=== PATIENT | female | born 1975 | race Caucasian/White ===

== ENCOUNTER → 2021-09-03 13:43 | Outpatient (BNVA) | payer BC, SELFPAY | PROVIDERS: Family Provider Family Medicine; PCP Nurse Practitioner Family; Visit Provider Nurse Practitioner Family | DX: G56.01 Carpal tunnel syndrome, right upper limb (principal); M25.531 Pain in right wrist; M19.031 Primary osteoarthritis, right wrist | CPT/HCPCS: 73110 ==

== ENCOUNTER → 2022-12-22 10:19 | Outpatient (BNVA) | payer BC, SELFPAY | PROVIDERS: Family Provider Family Medicine; PCP Nurse Practitioner Family; Visit Provider Nurse Practitioner Family | DX: R05.9 Cough, unspecified (principal); J32.9 Chronic sinusitis, unspecified; B96.89 Other specified bacterial agents as the cause of diseases classified elsewhere; H65.91 Unspecified nonsuppurative otitis media, right ear | CPT/HCPCS: 87400; 87426 ==

== ENCOUNTER → 2023-01-05 16:10 | Outpatient (BNVA) | payer BC, MEDICAID, SELFPAY | PROVIDERS: Family Provider Family Medicine; PCP Nurse Practitioner Family; Visit Provider Nurse Practitioner Family | DX: R05.9 Cough, unspecified (principal); R06.02 Shortness of breath; R50.9 Fever, unspecified | CPT/HCPCS: 71046; 80053; 83036; 85025 ==

== ENCOUNTER → 2023-01-28 11:29 | Outpatient (BNVA) | payer BC, MEDICAID, SELFPAY | PROVIDERS: Family Provider Family Medicine; PCP Nurse Practitioner Family; Visit Provider Nurse Practitioner | DX: R05.3 Chronic cough (principal) | CPT/HCPCS: 71046 ==

== ENCOUNTER 2023-05-21 09:55 | Outpatient (CLI) | payer MEDICAID, SELFPAY ==
--- NOTE | 2023-05-21 09:58 | NM_ITS ---
WS: [id number] NUCLEAR MEDICINE HIDA SCAN WITH GALLBLADDER EJECTION FRACTION HISTORY: RIGHT UPPER QUADRANT PAIN COMPARISON: 07/23/2007 and gallbladder ultrasound 04/10/2014 TECHNIQUE: The patient was intravenously injected with 8.0 mCi of TC99m Mebrofenin. Immediate imaging over the right upper quadrant was followed by 5 minute image and additional images for a total of 60 minutes. Normal uptake of radiotracer throughout the liver. Activity identified in the gallbladder at 10 minutes and well distended by 60 minutes. Activity in the proximal small bowel was seen by 30 minutes. Good washout of the radiotracer from the liver by 60 minutes. The patient then drank 8 ounces of Ensure Plus. Ejection fraction at 60 minutes was 78%. Normal GB ej ection fraction is 35-75%. Post fatty meal symptoms: None. NM/NM hepatobiliary w phar* [id number] IMPRESSION: 1. Normal HIDA scan. 2. Normal gallbladder ejection fraction.
== END 2023-05-21 09:56 | disposition home or self-care (01) ==
LOC: RAD 09:56
PROVIDERS: PCP Nurse Practitioner; Visit Provider Nurse Practitioner
DX: R10.11 Right upper quadrant pain (principal)
CPT/HCPCS: 78227; A9537

== ENCOUNTER → 2024-09-19 13:27 | Outpatient (BNVA) | payer OTHER, SELFPAY | PROVIDERS: PCP Nurse Practitioner; Visit Provider Nurse Practitioner Family | DX: S69.92XA Unspecified injury of left wrist, hand and finger(s), initial encounter (principal); M79.642 Pain in left hand; M25.742 Osteophyte, left hand; Y29.XXXA Contact with blunt object, undetermined intent, initial encounter | CPT/HCPCS: 73130 ==

== ENCOUNTER 2025-04-03 16:10 | Outpatient (CLI) | payer MEDICAID, SELFPAY ==
--- NOTE | 2025-04-03 16:15 | USCV_ITS ---
Dominique Naylor Age: 49 Gender: F : 1975 Exam Date: 04/03/2025 16:25 Ordering Phys: Zoe Fernandez Technologist: R Exam Location: [facility] [place] Indication: swelling HISTORY: Swelling. TDS due to habitus PROCEDURES: On the left side, the common femoral, superficial femoral, profunda femoral, popliteal, posterior tibial, greater saphenous veins, and the peroneal trunk were identified and interrogated in the standard fashion. These veins were found to be easily compressible with spontaneous blood flow. No evidence of insufficiency or thrombus noted. Serial compression, augmentation maneuvers, and spectral Doppler flow evaluation were performed. FINDINGS: Normal 2-D Doppler and augmentation and compressibility throughout the lower extremity venous structures. Additional imaging through the proximal calf veins also reveals no thrombus. Limited evaluation of the greater saphenous vein is patent with no thrombus. CONCLUSIONS No DVT left lower extremity. Dr. Ava Wilson DO (Electronically Signed) Final Date: 04 Apr 2025 07:43 S
== END 2025-04-03 16:11 | disposition home or self-care (01) ==
PROVIDERS: PCP Nurse Practitioner; Visit Provider Nurse Practitioner
DX: M79.89 Other specified soft tissue disorders (principal)
CPT/HCPCS: 93971

== ENCOUNTER → 2025-04-28 13:19 | Outpatient (BNVA) | payer MEDICAID, SELFPAY | PROVIDERS: PCP Nurse Practitioner; Visit Provider Nurse Practitioner | DX: M17.12 Unilateral primary osteoarthritis, left knee (principal); M54.50 Low back pain, unspecified; M79.604 Pain in right leg | CPT/HCPCS: 73560; 73565 ==

== ENCOUNTER → 2025-05-09 14:37 | Outpatient (BNVA) | payer MEDICAID, SELFPAY | PROVIDERS: PCP Nurse Practitioner; Visit Provider Orthopaedic Surgery | DX: M54.9 Dorsalgia, unspecified (principal); M54.50 Low back pain, unspecified; M79.604 Pain in right leg; M79.605 Pain in left leg | CPT/HCPCS: 72110 ==

== ENCOUNTER → 2025-05-15 14:59 | Outpatient (BNVA) | payer MEDICAID, SELFPAY | PROVIDERS: PCP Nurse Practitioner; Visit Provider Nurse Practitioner | DX: M70.61 Trochanteric bursitis, right hip (principal); M70.62 Trochanteric bursitis, left hip; M54.50 Low back pain, unspecified; M79.604 Pain in right leg; M79.605 Pain in left leg | CPT/HCPCS: 73523 ==

== ENCOUNTER 2025-05-23 05:00 | Outpatient (RCR) | payer MEDICAID, SELFPAY | END 2025-06-22 23:59 | disposition home or self-care (01) | LOC: GPT 05:00 | PROVIDERS: PCP Nurse Practitioner; Visit Provider Orthopaedic Surgery | DX: M54.50 Low back pain, unspecified (principal); G89.29 Other chronic pain | CPT/HCPCS: 97110; 97112; 97140; 97161 ==

== ENCOUNTER 2025-05-28 16:22 | Emergency (ER) | payer MEDICAID, SELFPAY ==
--- OUTSIDE RECORDS SUMMARY | 2025-05-24 05:50 | XMS_ITS ---
Author Organization [employer] Address [address] [address] Care Team Providers Care Compliance Specialist Name Role Phone Zoe Fernandez Unavailable [phone] Allergies Allergen (clinical drug ingredient) Drug/Non Drug Allergy documented on EMR Reaction Allergy Type Onset Date Status sulfamethoxazole / trimethoprim Bactrim severe rash Drug Allergy Active Latex Latex rash Allergy Active lisinopril Lisinopril cough Drug Allergy Activ e Substance with sulfonamide structure and antibacterial mechanism of action (substance) Sulfa Antibiotics rash Drug Allergy Active Grandy Passion Fruit OS angioedema Drug Allergy Active REASON FOR VISIT f/u DM labs Medications Medication SIG (Take, Route, Frequency, Duration) Notes Start Date End Date Status predniSONE 20 MG TAKE THREE TABLETS BY MOUTH ONCE DAILY FOR FOUR DAYS THEN TAKE 1 & 1/2 TABLETS ONCE DAILY FOR FOUR DAYS THEN TAKE ONE TABLET ONCE DAILY FOR FOUR DAYS THEN TAKE 1/2 TABLET ONCE DAILY FOR FOUR DAYS Oral; Duration: 16 Days 06/14/2024 Unknown Ozempic (0.25 or 0.5 MG/DOSE) 2 MG/3ML 0.5mg Subcutaneous weekly; Duration: 30 days 2025 Active Ozempic (0.25 or 0.5 MG/DOSE) 2 MG/3ML 1mg Subcutaneous weekly; Duration: 30 days 06/23/2025 Active Varenicline Tartrate (Starter) 0.5 MG X 11 & 1 MG X 42 as directed Orally daily; Duration: 28 days 2025 Active Varenicline Tartrate (Starter) 0.5 MG X 11 & 1 MG X 42 as directed Orally month 2 and thereafter 06/23/2025 Active Albuterol Unknown Advair Diskus 250-50 MCG/ACT 1 puff Inhalation Twice a day; Duration: 30 days Active Trelegy Ellipta 100-62.5-25 MCG/ACT 1 puff Inhalation Once a day 08/29/2024 Unknown Nystatin 115649 UNIT/GM APPLY ONE APPLICATION TWICE DAILY; Duration: 15 Active Famotidine 20 mg TAKE ONE TO TWO TABLETS BY MOUTH ONCE DAILY FOR 30 DAYS; Duration: 30 Active Omeprazole 20 mg TAKE ONE CAPSULE BY MOUTH ONCE DAILY 30 MINUTES BEFORE MORNING MEAL; Duration: 90 Active Escitalopram Oxalate 10 mg TAKE ONE TABLET BY MOUTH ONCE DAILY; Duration: 90 Active Losartan Potassium 25 mg TAKE ONE TABLET BY MOUTH ONCE DAILY; Duration: 90 Active hydroCHLOROthiazide 12.5 MG 1 capsule in the morning Oral Once a day; Duration: 90 days Active Nystatin 958748 UNIT/GM APPLY ONE APPLICATION TO DIAPER/SKIN RASH EXTERNALLY TWICE DAILY FOR 10 DAYS; Duration: 10 Active Pimecrolimus 1 % APPLY ONE APPLICATION EXTERNALLY TWICE DAILY FOR 7 DAYS; Duration: 7 Active Diclofenac Sodium 75 MG 1 tablet as need ed prn pain Orally Twice a day 04/05/2025 Active Ondansetron HCl 4 MG 1 tablet as needed for nausea/vomiting Orally three times daily 01/06/2025 Active Clobetasol Propionate 0.05 % apply TO THE AFFECTED AREA(S) topically TO LEGS ONCE DAILY AT night. add occlusive dressing (saran WRAP) FOR 15 DAYS; Duration: 15 Active Ventolin HFA 108 (90 Base) MCG/ACT INHALE 2 PUFFS BY MOUTH EVERY 4 HOURS; Duration: 2 Active Meloxicam 7.5 MG 1 tablet Orally Once a day Active hydrOXYzine HCl 25 mg TAKE 1/2 TO 1 TABLET BY MOUTH EVERY 6 HOURS NEEDED FOR ITCHING/PANIC/ANXI ETY FOR 10 DAYS; Duration: 10 Active EPINEPHrine 0.3 MG/0.3ML as directed for r anahylaxis. Injection call EMS after injection. must go to ER. 07/24/2023 Active Triamcinolone Acetonide 0.1 % APPLY TO THE AFFECTED AREA(S) ON TRUNK AND EXTREMITIES TWICE DAILY External; Duration: 30 Days 06/10/2024 Active Social History Sex Assigned At : Social History Observation Description Sex Assigned At Female Problems Problem Type SNOMED Code ICD Code Onset Dates Problem Status W/U Status Risk Notes Problem Hyperglycemia due to type 2 diabetes mellitus (227140825722676) Type 2 diabetes mellitus with hyperglycemia , without long-term current use of insulin (E11.65) Active confirmed Problem Body mass index 40+ - severely obese (887318484) Body mass index (BMI) of 40.1 to 44.9 in adult (Z68.41) Active confirmed Vital Signs Blood pressure systolic 120 mm Hg 05/24/20 25 Blood pressure diastolic 55 mm Hg 025 Heart Rate 81 /min 2025 Temperature 97.8 degrees Fahrenheit 05/24/20 25 Oximetry 97 % 2025 Weight 243.2 lbs 2025 Weight-kg 110.31 kg 2025 Height 64.5 in 2025 Height-cm 163.83 cm 2025 BMI 41.1 kg/m2 2025 Encounters En[facility] [address] [address] 2025 Zoe Fernandez Type 2 diabetes mellitus with hyperglycemia, without long-term current use of insulin E11.65 ; Body mass index (BMI) of 40.1 to 44.9 in adult Z68.41 and Smoker F17.200 Assessments Encounter Date Diagnosis (ICD Code) Assessment Notes Treatment Notes Treatment Clinical Notes Section Notes 2025 Type 2 diabetes mellitus with hyperglycemia, without long-term current use of insulin (ICD-10 - E11.65) 2025 Body mass index (BMI) of 40.1 to 44.9 in adult (ICD-10 - Z68.41) 2025 Smoker (ICD-10 - F17.200) Plan Of Treatment Medication Medication Name Sig Start Date Stop Date Notes Ozempic (0.25 or 0.5 MG/DOSE) 2 MG/3ML 0.5mg Subcutaneous weekly; Duration: 30 days 2025 06/23/2025 month 1 Ozempic (0.25 or 0.5 MG/DOSE) 2 MG/3ML 1mg Subcutaneous weekly; Duration: 30 days 06/23/2025 07/23/2025 Varenicline Tartrate (Starter) 0.5 MG X 11 & 1 MG X 42 as directed Orally daily; Duration: 28 days 2025 06/21/2025 Varenicline Tartrate (Starter) 0.5 MG X 11 & 1 MG X 42 as directed Orally 06/23/2025 month 2 and thereafter Future Test Test Name Order Date COMPREHENSIVE METABOLIC PANEL (74505) HEMOGLOBIN A1c (496) 08/23/2025 Next Appt Details Follow Up: 3 Months, Reason: Provider Name:Zoe Fernandez , 08/24/2025 08:10:00 AM, [address] [place] [address], [phone], Provider Name:Zoe Montanez , 08/31/2025 09:20:00 AM, [address] [place] [address], [phone], Progress Notes * Dominique NAYLOR EDOB: 6 (50 yo F)Acc No.[id number] Patient: Darren Dominique SANTANA Provider: Jenna Fernandez :1975 A ge:50 Y S ex:Female Date:2025 Address:[address] [place], [place] [id number] Subjective: * Chief Complaints: * f /u DM labs * HPI: T ransition of Care: variable glucose fasting 132 yesterday am. 2hr PP not recently checked got steroid inj in bilat hips and left knee yesterday, kar Salomon. started PT 05/23 will continue 2x week for 6w for hip/knee/back pain had 140 fasting glucose a few times since last visit --- stopped chantix d/t nausea...but thinks it may be d/t her food and env allergies. * ROS: G eneral / Constitutional: Patient denies f ever. E ndocrine: Patient complains of e xcessive sweating... horrible cold sweats . R espiratory: Patient complains of c hronic cough. H ematology: Patient denies s wollen glands. M usculoskeletal: Patient complains of s ee HPI, see HPI. * Medical History: * Medications: T akingMeloxicam 7.5 MG Tablet 1 tablet Orally Once a day EPINEPHrine 0.3 MG/0.3ML Solution Prefilled Syringe as directed forr anahylaxis. Injection , Notes to Pharmacist: call EMS after injection. must go to ER.Triamcinolone Acetonide 0.1 % Ointment APPLY TO THE AFFECTED AREA(S) ON TRUNK AND EXTREMITIES TWICE DAILY External hydrOXYzine HCl 25 mg Tablet TAKE 1/2 TO 1 TABLET BY MOUTH EVERY 6 HOURS NEEDED FOR ITCHING/PANIC/ANXIETY FOR 10 DAYS Ventolin HFA 108 (90 Base) MCG/ACT Aerosol Solution INHALE 2 PUFFS BY MOUTH EVERY 4 HOURS Ondansetron HCl 4 MG Tablet 1 tablet as needed for nausea/vomiting Orally three times daily Clobetasol Propionate 0.05 % Ointment apply TO THE AFFECTED AREA(S) topically TO LEGS ONCE DAILY AT night. add occlusive dressing (saran WRAP) FOR 15 DAYS Pimecrolimus 1 % Cream APPLY ONE APPLICATION EXTERNALLY TWICE DAILY FOR 7 DAYS Diclofenac Sodium 75 MG Tablet Delayed Release 1 tablet as needed prn pain Orally Twice a day Omeprazole 20 mg Capsule Delayed Release TAKE ONE CAPSULE BY MOUTH ONCE DAILY 30 MINUTES BEFORE MORNING MEAL Escitalopram Oxalate 10 mg Tablet TAKE ONE TABLET BY MOUTH ONCE DAILY Losartan Potassium 25 mg Tablet TAKE ONE TABLET BY MOUTH ONCE DAILY hydroCHLOROthiazide 12.5 MG Capsule 1 capsule in the morning Oral Once a day Nystatin 451110 UNIT/GM Powder APPLY ONE APPLICATION TO DIAPER/SKIN RASH EXTERNALLY TWICE DAILY FOR 10 DAYS Nystatin 190868 UNIT/GM Cream APPLY ONE APPLICATION TWICE DAILY Famotidine 20 mg Tablet TAKE ONE TO TWO TABLETS BY MOUTH ONCE DAILY FOR 30 DAYS Advair Diskus 250-50 MCG/ACT Aerosol Powder Breath Activated 1 puff Inhalation Twice a day Taking Meloxicam 7.5 MG Tablet 1 tablet Orally Once a day Taking EPINEPHrine 0.3 MG/0.3ML Solution Prefilled Syringe as directed forr anahylaxis. Injection , Notes to Pharmacist: call EMS after injection. must go to ER.Taking Triamcinolone Acetonide 0.1 % Ointment APPLY TO THE AFFECTED AREA(S) ON TRUNK AND EXTREMITIES TWICE DAILY External Taking hydrOXYzine HCl 25 mg Tablet TAKE 1/2 TO 1 TABLET BY MOUTH EVERY 6 HOURS NEEDED FOR ITCHING/PANIC/ANXIETY FOR 10 DAYS Taking Ventolin HFA 108 (90 Base) MCG/ACT Aerosol Solution INHALE 2 PUFFS BY MOUTH EVERY 4 HOURS Taking Ondansetron HCl 4 MG Tablet 1 tablet as needed for nausea/vomiting Orally three times daily Taking Clobetasol Propionate 0.05 % Ointment apply TO THE AFFECTED AREA(S) topically TO LEGS ONCE DAILY AT night. add occlusive dressing (saran WRAP) FOR 15 DAYS Taking Pimecrolimus 1 % Cream APPLY ONE APPLICATION EXTERNALLY TWICE DAILY FOR 7 DAYS Taking Diclofenac Sodium 75 MG Tablet Delayed Release 1 tablet as needed prn pain Orally Twice a day Taking Omeprazole 20 mg Capsule Delayed Release TAKE ONE CAPSULE BY MOUTH ONCE DAILY 30 MINUTES BEFORE MORNING MEAL Taking Escitalopram Oxalate 10 mg Tablet TAKE ONE TABLET BY MOUTH ONCE DAILY Taking Losartan Potassium 25 mg Tablet TAKE ONE TABLET BY MOUTH ONCE DAILY Taking hydroCHLOROthiazide 12.5 MG Capsule 1 capsule in the morning Oral Once a day Taking Nystatin 435152 UNIT/GM Powder APPLY ONE APPLICATION TO DIAPER/SKIN RASH EXTERNALLY TWICE DAILY FOR 10 DAYS Taking Nystatin 406986 UNIT/GM Cream APPLY ONE APPLICATION TWICE DAILY Taking Famotidine 20 mg Tablet TAKE ONE TO TWO TABLETS BY MOUTH ONCE DAILY FOR 30 DAYS Taking Advair Diskus 250-50 MCG/ACT Aerosol Powder Breath Activated 1 puff Inhalation Twice a day UnknownTrelegy Ellipta 100-62.5-25 MCG/ACT Aerosol Powder Breath Activated 1 puff Inhalation Once a day Albuterol predniSONE 20 MG Tablet TAKE THREE TABLETS BY MOUTH ONCE DAILY FOR FOUR DAYS THEN TAKE 1 & 1/2 TABLETS ONCE DAILY FOR FOUR DAYS THEN TAKE ONE TABLET ONCE DAILY FOR FOUR DAYS THEN TAKE 1/2 TABLET ONCE DAILY FOR FOUR DAYS Oral Medication List reviewed and reconciled with the patientUnkpatrica Trelegy Ellipta 100-62.5-25 MCG/ACT Aerosol Powder Breath Activated 1 puff Inhalation Once a day Unknown Albuterol Unknown predniSONE 20 MG Tablet TAKE THREE TABLETS BY MOUTH ONCE DAILY FOR FOUR DAYS THEN TAKE 1 & 1/2 TABLETS ONCE DAILY FOR FOUR DAYS THEN TAKE ONE TABLET ONCE DAILY FOR FOUR DAYS THEN TAKE 1/2 TABLET ONCE DAILY FOR FOUR DAYS Oral Medication List reviewed and reconciled with the patient * Allergies: B actrim: severe rashMango Passion Fruit OS: angioedemaSulfa Antibiotics: rash - Allergy - Criticality HighLisinopril: coughLatex: rash - Criticality [place][Allergies Verified] Objective: * Vitals: B P:120/55mm Hg, HR:81/min, Temp:97.8F, Oxygen sat %:97%, Wt:243.2lbs, Wt-k.31 kg, Ht: 64.5 in, Ht-cm: 163.83 cm, BMI:41.1Index, Body Surface Area: 2.24. * Examination: G eneral Examination: General appearance: a lert, pleasant, well-nourished and in no acute distress . Head: n ormocephalic, atraumatic . Eyes: n ormal . Nose: n ryan patent . Oral cavity: n ormal . Neck / thyroid: t rachea midline . Lymph nodes: n o cervical lymphadenopathy . Heart: r egular rate and rhythm without murmurs, gallops, clicks or rubs . Lungs: c lear to auscultation bilaterally, with good air movement and no rales, rhonchi or wheezes . Peripheral pulses: n ormal 2+ arterial pulses . Neurologic: a lert and oriented . Psych: n ormal affect / mood . Assessment: * Assessment: 1. T ype 2 diabetes mellitus with hyperglycemia, without long-term current use of insulin - E11.65 (Primary) 2 . B concepción mass index (BMI) of 40.1 to 44.9 in adult - Z68.41 ? 3 . S ysabel - F17.200 Plan: * Treatment: 2. S moker Start Varenicline Tartrate (Starter) Tablet Therapy Pack, 0.5 MG X 11 & 1 MG X 42, as directed, Orally, daily, 28 days, 1 pack, Refills 0; S tart Varenicline Tartrate (Starter) Tablet Therapy Pack, 0.5 MG X 11 & 1 MG X 42, as directed, Orally, 1 pack, Refills 5, Notes to Pharmacist: month 2 and thereafter. * Procedure Codes: * Follow Up: 3 Months * Billing Information: * Visit Code: 44931 Office Visit, Est Pt., Level 4. * Procedure Codes: * Sign off status: Completed true * Provider: Jenna Fernandez Date: 2025 Generated for Justin potts/Deven/Doc on: 05/28/2025 04:28 PM CDT History and Physical Notes * HPI (History of Present Illness) Category Sub-Category Detail Notes Category Not es Transition of Care started PT 05/23 will continue 2x week for 6w for hip/knee/back pain had 140 fasting glucose a few times since last visit --- stopped chantix d/t nausea...but thinks it may be d/t her food and env allergies Examination Category Sub-Category Detail Notes Category Not es General Examination General appearance: alert, p leasant, well-nourished and in no acute distress Head: normocephalic, atrau matic Eyes: normal Nose: nares patent Neck / thyroid: trachea midline Heart: regular rate and rhy thm without murmurs, gallops, clicks or rubs Lungs: clear to auscultatio n bilaterally, with good air movement and no rales, rhonchi or wheezes Neurologic: alert and oriented Peripheral pulses: normal 2+ arterial p ulses Lymph nodes: no cervical lymphade nopathy Psych: normal affect / mood Oral cavity: normal
[2025-05-28 16:23] VITALS: BP 134/91; PULSE 87; RESP 17; TEMP 36.9; O2SAT 95; BMI 43.2
--- NOTE | 2025-05-28 16:24 | XRR_ITS ---
PROCEDURE INFORMATION: Exam: XR Chest Exam date and time: 05/28/2025 4:32 PM Age: 50 years old Clinical indication: Chest pressure; Chest pain that worsens with expiration. PT has a history of pe. ; Additional info: Cp TECHNIQUE: Imaging protocol: Radiologic exam of the chest. Views: 1 view. COMPARISON: CR XR chest 2V* [id number] 01/28/2023 11:49 AM FINDINGS: Lungs: Unremarkable. No consolidation. Pleural spaces: Unremarkable. No pleural effusion. No pneumothorax. Heart/Mediastinum: Unremarkable. No cardiomegaly. Bones/joints: Mild spondylosis and bilateral acromioclavicular joint arthropathy. XR/XR chest 1V portable [id number] IMPRESSION: No acute findings.
--- NOTE | 2025-05-28 16:24 | ECG_ITS ---
[facility] Test Date: 2025-05-28 Pat Name: Dominique Naylor Department: Room: Gender: Female Bi Analyst: : 1975 Requested By: Sanjeev Hoskins Order Number: [id number] Reading MD: Measurements Intervals Brilliant Rate: 85 P: 38 NH: 159 QRS: 10 QRSD: 94 T: 40 QT: 365 QTc: 434 Interpretive Statements SINUS RHYTHM LOW QRS VOLTAGE IN PRECORDIAL LEADS [QRS DEFLECTION < 1.0 mV IN CHEST LEADS] Compared to ECG 04/10/2017 16:43:39 Low QRS voltage now present [email or web address]
--- NOTE | 2025-05-28 16:27 | CTR_ITS ---
PROCEDURE INFORMATION: Exam: CTA Chest With Contrast Exam date and time: 05/28/2025 5:03 PM Age: 50 years old Clinical indication: Pain; Chest pressure; Additional info: Cp TECHNIQUE: Imaging protocol: Computed tomographic angiography of the chest with contrast. Exam focused on the arteries. 3D rendering (Not supervised by radiologist): MIP and/or 3D reconstructed images were created by the technologist. Radiation optimization: All CT scans at this facility use at least one of these dose optimization techniques: automated exposure control; mA and/or kV adjustment per patient size (includes targeted exams where dose is matched to clinical indication); or iterative reconstruction. Contrast material: OMNIPAQUE 350; Contrast volume: 73 ml; Contrast route: INTRAVENOUS (IV); COMPARISON: CR (CHEST, ) 05/28/2025 4:32 PM RADIATION DOSE METRICS: Total DLP (mGy-cm): 506.26 FINDINGS: Pulmonary arteries: Normal. No pulmonary emboli. Aorta: Unremarkable. No aortic aneurysm. No aortic dissection. Lungs: No consolidation or mass. 7 mm posterior left upper lobe nodule on axial image 154 of series 7. Possible fat density. Pleural spaces: Unremarkable. No pneumothorax. No pleural effusion. Heart: Unremarkable. No cardiomegaly. No pericardial effusion. Lymph nodes: Unremarkable. No enlarged lymph nodes. Bones/joints: No acute fracture. Mild spondylosis. Soft tissues: Unremarkable. CT/CT angio chest PE protcl [id number] IMPRESSION: 7 mm left upper lobe nodule with possible fat density possibly indicating hamartoma. For patients at low risk (minimal or absent history of smoking and of other known risk factors), recommend CT Chest at 6-12 months, then consider CT Chest at 18-24 months. For patients at high risk (history of smoking or of other known risk factors), recommend CT Chest at 6-12 months, then CT Chest at 18-24 months. (Reference: Alec) REFERENCES: Alec Gupta et al. Guidelines for Management of Incidental Pulmonary Nodules Detected on CT Images: From the Fleischner Society 2017. Radiology. 2017;284(1):228-243.
--- NOTE | 2025-05-28 16:28 | W.ED.CHESTPA ---
Documented by User: Sanjeev Hoskins MD 05/28/25 16:31 HPI - Chest Pain General: Chief Complaint: Chest Pain Stated Complaint: chest pain Time Seen by Provider: 05/28/25 16:24 Source: patient and EMS Mode of arrival: EMS Limitations: no limitations History of Present Illness: 50-year-old female states been having sharp left-sided chest pain throughout the day. States has been much worse with [facility] her pain was originally 10 out of 10 states its much improved currently 1 out of 10 she had a slight cough she states she does have a history of PE 8 years ago is not currently on any blood thinners Associated symptoms: Deny abdominal pain, fever(s), nausea or vomiting Related Data Home Medications ?Medication ?Instructions ?Recorded ?Confirmed [id number] 18 mg-FA 400 tab PO 06/26/22 05/15/25 mcg-calcium 500 mg-vit K 50 mcg tablet (Women's Multivitamin) losartan 25 mg tablet 25 mg PO DAILY 04/28/25 05/15/25 escitalopram oxalate 20 mg tablet 20 mg PO DAILY 05/09/25 05/15/25 (Lexapro) hydrochlorothiazide 25 mg tablet 25 mg PO DAILY 05/09/25 05/15/25 omeprazole magnesium 20 mg 20 mg PO DAILY 05/09/25 05/15/25 tablet,delayed release (Prilosec OTC) Previous Rx's ?Medication ?Instructions ?Recorded losartan 25 mg tablet See Rx Instructions .Route 10/23/22 .COMPLEX #90 tabs meloxicam 7.5 mg tablet 7.5 mg PO DAILY #90 tabs 04/28/25 Allergies Allergy/AdvReac Type Severity Reaction Status Date / Time Sulfa (Sulfonamide Allergy ALGY-Hives Verified 05/15/25 14:57 Antibiotics) Review of Systems Const: Denies: fever(s), chills, body aches or change in appetite ENMT: Denies: throat pain or dental pain Card: Reports: chest pain Resp: Reports: non-productive cough GI: Denies: abdominal pain, nausea, vomiting or diarrhea : Denies: dysuria Musc: Denies: neck pain or back pain Skin/Breast: Denies: rash Neuro: Denies: headache(s) PFSH ED PFSH: Medical History Greater trochanteric bursitis of both hips Low back pain radiating to both legs Primary osteoarthritis of left knee Social History Smoking and tobacco/nicotine status: current every day tobacco/nicotine user cigarettes Packs smoked per day: 0.5 Alcohol intake: never Substance/Drug Use: never Physical Exam Const: COMMON NORMALS: no acute distress, patient oriented x3 and healthy appearing HENMT: COMMON NORMALS: normocephalic and atraumatic HEAD & SCALP: normocephalic and atraumatic Eye: COMMON NORMALS: conjunctivae normal CONJUNCTIVA: Yes conjunctivae normal Neck/C-Spine: COMMON NORMALS: full ROM and supple Chest: COMMONS NORMALS: normal inspection of the chest and normal palpation of entire chest wall Resp: COMMON NORMALS: normal respiratory effort, No retractions, No use of accessory muscles and clear to auscultation bilaterally AUSCULTATION: clear to auscultation bilaterally Cardio: COMMON NORMALS: regular rate, regular rhythm and No murmurs present (Cardio) RATE: regular rate RHYTHM: regular rhythm Extremity: COMMON NORMALS: normal to inspection and full ROM Neuro: COMMON NORMALS: patient oriented x3, moves all extremities and no focal motor deficits Psych: COMMON NORMALS: mental status grossly normal, Normal thought process present and cooperative THOUGHT PROCESS: Normal thought process present Skin: COMMON NORMALS: no rashes or lesions noted and no wounds GENERAL SKIN EXAM: no rashes or lesions noted Course Vital Signs: Vital signs: Vital Signs Temperature 98.5 F 05/28/25 16:23 Pulse Rate 83 05/28/25 17:40 Respiratory Rate 17 05/28/25 17:40 Blood Pressure 139/73 05/28/25 17:40 Pulse Oximetry 94 05/28/25 17:40 Oxygen Delivery Me thod Room Air 05/28/25 17:40 MDM - Chest Pain Medical Records I reviewed the patient's medical records. Lab Data I reviewed the patient's lab results. 05/28/25 16:47 05/28/25 16:47 Radiology Impressions Chest X-Ray 05/28/25 16:24 IMPRESSION: No acute findings. Chest CTA 05/28/25 16:27 IMPRESSION: 7 mm left upper lobe nodule with possible fat density possibly indicating hamartoma. For patients at low risk (minimal or absent history of smoking and of other known risk factors), recommend CT Chest at 6-12 months, then consider CT Chest at 18-24 months. For patients at high risk (history of smoking or of other known risk factors), recommend CT Chest at 6-12 months, then CT Chest at 18-24 months. (Reference: Alec) REFERENCES: Alec Gupta et al. Guidelines for Management of Incidental Pulmonary Nodules Detected on CT Images: From the Fleischner Society 2017. Radiology. 2017;284(1):228-243. Laboratory Results WBC 17.13 10^3/uL (3.29-11.43) H 05/28/25 16:47 RBC 4.54 10^6/uL (3.85-5.65) 05/28/25 16:47 Hgb 13.80 g/dL (11.27-16.99) 05/28/25 16:47 Hct 42.0 % (36-47) 05/28/25 16:47 MCV 92.5 fl (85-98) 05/28/25 16:47 MCH 30.4 pg (27-33) 05/28/25 16:47 MCHC 32.9 g/dL (30-55) 05/28/25 16:47 RDW 13.8 % (12.1-15.1) 05/28/25 16:47 Plt Count 298 10^3/cmm (157-399) 05/28/25 16:47 MPV 9.5 fL (7.4-10.4) 05/28/25 16:47 Neut % (Auto) 68.7 % 05/28/25 16:47 Lymph % (Auto) 23.8 % 05/28/25 16:47 Jennings % (Auto) 5.4 % 05/28/25 16:47 Eos % (Auto) 1.3 % 05/28/25 16:47 Baso % (Auto) 0.4 % 05/28/25 16:47 Neut # (Auto) 11.76 10^3/uL (1.8-7.7) H 05/28/25 16:47 Lymph # (Auto) 4.1 10^3/uL (0.8-4.8) 05/28/25 16:47 Jennings # (Auto) 0.9 10^3/uL (0.2-0.9) 05/28/25 16:47 Eos # (Auto) 0.2 10^3/uL (0.0-0.8) 05/28/25 16:47 Baso # (Auto) 0.1 10^3/uL (0.0-0.1) 05/28/25 16:47 Nucleated RBC % (auto) 0 % 05/28/25 16:47 Nucleated RBCs # 0.0 /100WBC 05/28/25 16:47 PT 12.90 SECONDS (12.1-14.9) 05/28/25 16:47 INR 0.91 (0.8-1.2) 05/28/25 16:47 Sodium 138 mmol/L (136-145) 05/28/25 16:47 Potassium 4.3 mmol/L (3.5-5.1) 05/28/25 16:47 Chloride 100 mmol/L (98-107) 05/28/25 16:47 Carbon Dioxide 26 mmol/L (22-29) 05/28/25 16:47 Anion Gap 16.3 (5-19) 05/28/25 16:47 BUN 14 mg/dL (6-20) 05/28/25 16:47 Creatinine 0.7 mg/dL (0.5-0.9) 05/28/25 16:47 GFR Calculation 88.9 mL/min (90-130) L 05/28/25 16:47 Glucose 118 mg/dL (65-115) H 05/28/25 16:47 Calculated Osmolality 288 mOsm/kg (285-295) 05/28/25 16:47 Calcium 8.7 mg/dL (8.5-10.5) 05/28/25 16:47 Total Bilirubin 0.2 mg/dL (0.15-1.2) 05/28/25 16:47 AST 13 U/L (0-32) 05/28/25 16:47 ALT 19 U/L (0-33) 05/28/25 16:47 Alkaline Phosphatase 95 U/L (35-105) 05/28/25 16:47 Troponin T Baseline < 6 ng/L (0-10) 05/28/25 16:47 Troponin T 120 Minute < 6.0 ng/L (0-10) 05/28/25 19:02 Delta Troponin T 0 ABS# (0-10) 05/28/25 19:02 Total Protein 6.6 g/dL (6.6-8.7) 05/28/25 16:47 Albumin 3.6 g/dL (3.5-5.2) 05/28/25 16:47 Globulin 3.0 g/dL (1.3-4.6) 05/28/25 16:47 Lipase 22 U/L (13-60) 05/28/25 16:47 All radiology interpretation(s) finalized by discharge EKG Data EKG 1: I personally reviewed and interpreted this EKG as follows: EKG interpretation date: 05/28/25 EKG interpretation time: 16:26 Interpretation: nsr hr [address] elevation qrs 94 qtc 407 Discharge Plan Discharge Patient Disposition: Home Clinical Impression: Pleuritic chest pain Condition: Stable Prescriptions: No Action losartan 25 mg tablet 25 mg PO DAILY meloxicam 7.5 mg tablet 7.5 mg PO DAILY Qty: 90 0RF hydrochlorothiazide 25 mg tablet 25 mg PO DAILY escitalopram oxalate [Lexapro] 20 mg tablet 20 mg PO DAILY omeprazole magnesium [Prilosec OTC] 20 mg tablet,delayed release (DR/EC) 20 mg PO DAILY Women's Multivitamin 18 mg-400 mcg- 500 mg-50 mcg tablet PO losartan 25 mg tablet See Rx Instructions .ROUTE .COMPLEX Qty: 90 0RF Dose Instruction: Take 1 tablet by mouth once daily Rx Instructions: Take 1 tablet by mouth once daily Discharge Orders: Discharge ED (Routine); Ordered 05/28/25 Ordered By: Karina Perkins Referrals: Zoe Fernandez FNP [Primary Care Provider, Family Practice] Patient Instructions: Patient Portal & Mattie Instructions Activity Restrictions/Additional Instructions: As we discussed, your cardiac workup here was unremarkable. You have indicated you have an upcoming appointment with primary care and that you will speak to her regarding today's visit and any further follow-up instructions. You may return to the emergency department at anytime for any further concerns you may have. Print Language: Vincentian Coding Level of Care Code ED Medical Staff Manager for Chg Fwd Documented by User: PATIENCE Rebolledo 05/28/25 19:57 HPI - Chest Pain General: Chief Complaint: Chest Pain Stated Complaint: chest pain Time Seen by Provider: 05/28/25 16:24 Related Data Home Medications ?Medication ?Instructions ?Recorded ?Confirmed [id number]-[id number] 18 mg-FA 400 tab PO 06/26/22 05/15/25 mcg-calcium 500 mg-vit K 50 mcg tablet (Women's Multivitamin) losartan 25 mg tablet 25 mg PO DAILY 04/28/25 05/15/25 escitalopram oxalate 20 mg tablet 20 mg PO DAILY 05/09/25 05/15/25 (Lexapro) hydrochlorothiazide 25 mg tablet 25 mg PO DAILY 05/09/25 05/15/25 omeprazole magnesium 20 mg 20 mg PO DAILY 05/09/25 05/15/25 tablet,delayed release (Prilosec OTC) Previous Rx's ?Medication ?Instructions ?Recorded losartan 25 mg tablet See Rx Instructions .Route 10/23/22 .COMPLEX #90 tabs meloxicam 7.5 mg tablet 7.5 mg PO DAILY #90 tabs 04/28/25 Allergies Allergy/AdvReac Type Severity Reaction Status Date / Time Sulfa (Sulfonamide Allergy ALGY-Hives Verified 05/15/25 14:57 Antibiotics) PFSH ED PFSH: Medical History Greater trochanteric bursitis of both hips Low back pain radiating to both legs Primary osteoarthritis of left knee Social History Smoking and tobacco/nicotine status: current every day tobacco/nicotine user cigarettes Packs smoked per day: 0.5 Alcohol intake: never Substance/Drug Use: never Course Vital Signs: Vital signs: Vital Signs Temperature 98.5 F 05/28/25 16:23 Pulse Rate 83 05/28/25 17:40 Respiratory Rate 17 05/28/25 17:40 Blood Pressure 139/73 05/28/25 17:40 Pulse Oximetry 94 05/28/25 17:40 Oxygen Delivery Me thod Room Air 05/28/25 17:40 MDM - Chest Pain Medical Decision Making I assumed care of this patient by Dr. Hoskins. Vital signs have been stable. She has been resting comfortably in no acute distress during her stay. Her baseline and repeat troponins are completely unremarkable. Remainder of blood work is nonactionable. She does have a white count at roughly 17,000. Patient states she has chronic leukocytosis. She has also received recent steroids. CXR is unremarkable. CTA imaging was ordered from previous provider due to history of pulmonary emboli. This is unremarkable. Incidental small 7 mm nodule possibly representing a hamartoma. Patient made aware of this finding and can continue surveillance through her primary care. At this time I do not have any suspicion for life-threatening or emergent etiology for her discomfort. She does have an upcoming appointment with primary care and will speak to them further regarding symptoms. Lab Data 05/28/25 16:47 05/28/25 16:47 Radiology Impressions Chest X-Ray 05/28/25 16:24 IMPRESSION: No acute findings. Chest CTA 05/28/25 16:27 IMPRESSION: 7 mm left upper lobe nodule with possible fat density possibly indicating hamartoma. For patients at low risk (minimal or absent history of smoking and of other known risk factors), recommend CT Chest at 6-12 months, then consider CT Chest at 18-24 months. For patients at high risk (history of smoking or of other known risk factors), recommend CT Chest at 6-12 months, then CT Chest at 18-24 months. (Reference: Alec) REFERENCES: Alec Gupta, et al. Guidelines for Management of Incidental Pulmonary Nodules Detected on CT Images: From the Fleischner Society 2017. Radiology. 2017;284(1):228-243. Laboratory Results WBC 17.13 10^3/uL (3.29-11.43) H 05/28/25 16:47 RBC 4.54 10^6/uL (3.85-5.65) 05/28/25 16:47 Hgb 13.80 g/dL (11.27-16.99) 05/28/25 16:47 Hct 42.0 % (36-47) 05/28/25 16:47 MCV 92.5 fl (85-98) 05/28/25 16:47 MCH 30.4 pg (27-33) 05/28/25 16:47 MCHC 32.9 g/dL (30-55) 05/28/25 16:47 RDW 13.8 % (12.1-15.1) 05/28/25 16:47 Plt Count 298 10^3/cmm (157-399) 05/28/25 16:47 MPV 9.5 fL (7.4-10.4) 05/28/25 16:47 Neut % (Auto) 68.7 % 05/28/25 16:47 Lymph % (Auto) 23.8 % 05/28/25 16:47 Jennings % (Auto) 5.4 % 05/28/25 16:47 Eos % (Auto) 1.3 % 05/28/25 16:47 Baso % (Auto) 0.4 % 05/28/25 16:47 Neut # (Auto) 11.76 10^3/uL (1.8-7.7) H 05/28/25 16:47 Lymph # (Auto) 4.1 10^3/uL (0.8-4.8) 05/28/25 16:47 Jennings # (Auto) 0.9 10^3/uL (0.2-0.9) 05/28/25 16:47 Eos # (Auto) 0.2 10^3/uL (0.0-0.8) 05/28/25 16:47 Baso # (Auto) 0.1 10^3/uL (0.0-0.1) 05/28/25 16:47 Nucleated RBC % (auto) 0 % 05/28/25 16:47 Nucleated RBCs # 0.0 /100WBC 05/28/25 16:47 PT 12.90 SECONDS (12.1-14.9) 05/28/25 16:47 INR 0.91 (0.8-1.2) 05/28/25 16:47 Sodium 138 mmol/L (136-145) 05/28/25 16:47 Potassium 4.3 mmol/L (3.5-5.1) 05/28/25 16:47 Chloride 100 mmol/L (98-107) 05/28/25 16:47 Carbon Dioxide 26 mmol/L (22-29) 05/28/25 16:47 Anion Gap 16.3 (5-19) 05/28/25 16:47 BUN 14 mg/dL (6-20) 05/28/25 16:47 Creatinine 0.7 mg/dL (0.5-0.9) 05/28/25 16:47 GFR Calculation 88.9 mL/min (90-130) L 05/28/25 16:47 Glucose 118 mg/dL (65-115) H 05/28/25 16:47 Calculated Osmolality 288 mOsm/kg (285-295) 05/28/25 16:47 Calcium 8.7 mg/dL (8.5-10.5) 05/28/25 16:47 Total Bilirubin 0.2 mg/dL (0.15-1.2) 05/28/25 16:47 AST 13 U/L (0-32) 05/28/25 16:47 ALT 19 U/L (0-33) 05/28/25 16:47 Alkaline Phosphatase 95 U/L (35-105) 05/28/25 16:47 Troponin T Baseline < 6 ng/L (0-10) 05/28/25 16:47 Troponin T 120 Minute < 6.0 ng/L (0-10) 05/28/25 19:02 Delta Troponin T 0 ABS# (0-10) 05/28/25 19:02 Total Protein 6.6 g/dL (6.6-8.7) 05/28/25 16:47 Albumin 3.6 g/dL (3.5-5.2) 05/28/25 16:47 Globulin 3.0 g/dL (1.3-4.6) 05/28/25 16:47 Lipase 22 U/L (13-60) 05/28/25 16:47 Discharge Plan Discharge Patient Disposition: Home Clinical Impression: Pleuritic chest pain Condition: Stable Prescriptions: No Action losartan 25 mg tablet 25 mg PO DAILY meloxicam 7.5 mg tablet 7.5 mg PO DAILY Qty: 90 0RF hydrochlorothiazide 25 mg tablet 25 mg PO DAILY escitalopram oxalate [Lexapro] 20 mg tablet 20 mg PO DAILY omeprazole magnesium [Prilosec OTC] 20 mg tablet,delayed release (DR/EC) 20 mg PO DAILY Women's Multivitamin 18 mg-400 mcg- 500 mg-50 mcg tablet PO losartan 25 mg tablet See Rx Instructions .ROUTE .COMPLEX Qty: 90 0RF Dose Instruction: Take 1 tablet by mouth once daily Rx Instructions: Take 1 tablet by mouth once daily Discharge Orders: Discharge ED (Routine); Ordered 05/28/25 Ordered By: Karina Perkins Referrals: Zoe Fernandez FNP [Primary Care Provider, Family Practice] Patient Instructions: Patient Portal & Mattie Instructions Activity Restrictions/Additional Instructions: As we discussed, your cardiac workup here was unremarkable. You have indicated you have an upcoming appointment with primary care and that you will speak to her regarding today's visit and any further follow-up instructions. You may return to the emergency department at anytime for any further concerns you may have. Print Language: Vincentian Coding Level of Care Code ED Medical Staff Manager for Rehana Greene
--- OUTSIDE RECORDS SUMMARY | 2025-05-28 16:28 | XMS_ITS | Patient Health Record ---
[facility] Address [address] [place] [address] Care Team Providers Care Joint Sealer Name Role Phone Zoe Fernandez [phone] Allergies Allergen (clinical drug ingredient) Drug/Non Drug Allergy documented on EMR Reaction Allergy Type Onset Date Status sulfamethoxazole / trimethoprim Bactrim severe rash Drug Allergy Active Latex Latex rash Allergy Active lisinopril Lisinopril cough Drug Allergy Activ e Substance with sulfonamide structure and antibacterial mechanism of action (substance) Sulfa Antibiotics rash Drug Allergy Active Damion Passion Fruit OS angioedema Drug Allergy Active Results Component Value Reference Range Notes TSH W/REFLEX TO FT4 (40280) Reviewed date:2025 02:15:34 PM Interpretation: Performing Lab:[facility]-[id number] Diaz Onofre[address] Gloria Barcenas MD Notes/Report: 0 0 0 0 TSH W/REFLEX TO FT4 0.52 Reference Range > or = 20 Years 0.40-4.50 Ranges First trimester 0.26-2.66 Second trimester 0.55-2.73 Third trimester 0.43-2.91 T3, TOTAL (859) Reviewed date:2025 02:15:34 PM Interpretation: Performing Lab:[facility]-[id number] Neal Carreno, EsrocbQT[address] Gloria Barcenas MD Notes/Report: 0 0 0 0 T3, TOTAL 85 76-181 ng/dL HEMOGLOBIN A1c (496) Reviewed date:2025 02:15:34 PM Interpretation: Performing Lab:[facility]-[id number] Kane OnofreZllyjfPV[address] Gloria Barcenas MD Notes/Report: 0 0 0 0 HEMOGLOBIN A1c 5.9 <5.7 % For someone without known diabetes, a hemoglobin A1c value between 5.7% and 6.4% is consistent with prediabetes and should be confirmed with a follow-up test. For someone with known diabetes, a value <7% indicates that their diabetes is well controlled. A1c targets should be individualized based on duration of diabetes, age, comorbid conditions, and other considerations. This assay result is consistent with an increased risk of diabetes. Currently, no consensus exists regarding use of hemoglobin A1c for diagnosis of diabetes for children. COMPREHENSIVE METABOLIC PANE L (90529) Reviewed date:2025 02:15:34 PM Interpretation: Performing Lab:[facility] [place]-[id number] Dawit OnofreaKS[address] Gloria Barcenas MD Notes/Report: 0 0 0 0 GLUCOSE 114 65-99 mg/dL Fasting reference interval For someone without known diabetes, a glucose value between 100 and 125 mg/dL is consistent with prediabetes and should be confirmed with a follow-up test. UREA NITROGEN (BUN) 13 7-25 mg/dL CREATININE 0.61 0.50-0.99 mg/dL EGFR 110 > OR = 60 mL/min/1.73m2 BUN/CREATININE RATIO SEE NOTE: 6-22 (calc) Not Reported: BUN and Creatinine are within reference range. SODIUM 137 135-146 mmol/L POTASSIUM 3.8 3.5-5.3 mmol/L CHLORIDE 103 98-110 mmol/L CARBON DIOXIDE 24 20-32 mmol/L CALCIUM 9.6 8.6-10.2 mg/dL PROTEIN, TOTAL 8.0 6.1-8.1 g/dL ALBUMIN 4.1 3.6-5.1 g/dL GLOBULIN 3.9 1.9-3.7 g/dL (calc) ALBUMIN/GLOBULIN RATIO 1.1 1.0-2.5 (calc) BILIRUBIN, TOTAL 0.4 0.2-1.2 mg/dL ALKALINE PHOSPHATASE 87 31-125 U/L AST 17 10-35 U/L ALT 23 6-29 U/L ASPERGILLUS FUMIGATUS (M3) I GG (42830) Reviewed date:04/10/2025 05:25:03 PM Interpretation: Performing Lab:HENRR[facility],[address] [facility] Shona Davis MD,PhD,AISLINN Notes/Report: 0 0 0 0 0 ASPERGILLUS FUMIGATUS (M3) IGG 126.0 <2.0 mcg/mL This test was performed using a kit that has not been cleared or approved by the FDA. The analytical performance characteristics of this test have been determined by [facility]. This test should not be used for diagnosis without confirmation by other medically established means. STRONGYLOIDES AB (IGG) (3430 9) Reviewed date:04/10/2025 05:25:03 PM Interpretation: Performing Lab:HENRRY [facility],[id number] [facility] Shona Davis MD,PhD,AISLINN Notes/Report: 0 0 0 0 0 STRONGYLOIDES AB (IGG) NEGATIVE REFERENCE RANGE: NEGATIVE Strongyloides stercoralis is a parasitic Nematode found in tropical and subtropical regions. Because of low larval densities in feces, stool examination is a relatively insensitive diagnostic test; antibody detection offers increased sensitivity. Patients with latent infections who are immunosuppressed or receiving immunosuppressive therapy are at risk of life-threatening hyperinfection. Significant crossreactivity may be observed in other helminth infections. ASPERGILLUS FUMIGATUS (M3) I GE (4573) Reviewed date:04/10/2025 05:25:03 PM Interpretation: Performing Lab:[facility], [facility]-[id number] Neal [facility], DislxsQA[address] Gloria Barcenas MD Notes/Report: 0 0 0 0 0 0 0 0 0 0 ASPERGILLUS FUMIGATUS (M3) IGE 0.33 CLASS 0/1 INTERPRETATION Specific Level of Allergen IGE Class kU/L Specific IGE Antibody ----- --------- 0 <0.10 Absent/Undetectable 0/1 0.10-0.34 Very Low Level 1 0.35-0.69 Low Level 2 0.70-3.49 Moderate Level 3 3.50-17.4 High Level 4 17.5-49.9 Very High Level 5 50-100 Very High Level 6 >100 Very High Level The clinical relevance of allergen results of 0.10-0.34 kU/L are undetermined and intended for specialist use. Allergens denoted with a include results using one or more analyte specific reagents. In those cases, the test was developed and its analytical performance characteristics have been determined by [facility]. It has not been cleared or approved by the U.S. Food and Drug Administration. This assay has been validated pursuant to the CLIA regulations and is used for clinical purposes. IMMUNOGLOBULIN M (545) Reviewed date:04/10/2025 05:25:02 PM Interpretation: Performing Lab:Greg [facility]O-[id number] Neal Carreno, WbjnywQP[address] Gloria Barcenas MD Notes/Report: 0 0 0 0 0 IMMUNOGLOBULIN M 72 50-300 mg/dL IMMUNOGLOBULIN G (543) Reviewed date:04/10/2025 05:25:02 PM Interpretation: Performing Lab:Greg [facility]-[id number] Neal Carreno, YgopklAH[address] Gloria Barcenas MD Notes/Report: 0 0 0 0 0 IMMUNOGLOBULIN G 0585 834-8784 mg/dL SED RATE BY MODIFIED WESTERG HILDA (809) Reviewed date:04/10/2025 05:25:02 PM Interpretation: Performing Lab:Greg [facility]-[id number] Neal Carreno, FrbkciDY[address] Gloria Barcenas MD Notes/Report: 0 0 0 0 0 SED RATE BY MODIFIED WESTERGREN 9 < OR = 20 mm/h PROTEIN, TOTAL AND PROTEIN E LECTROPHORESIS W/ REFL LYNDON (13456) Reviewed date:04/10/2025 05:25:02 PM Interpretation: Performing Lab:Greg [facility]-[id number] Neal Carreno, OvffreMG[address] Gloria Barcenas MD Notes/Report: 0 0 0 0 0 PROTEIN, TOTAL 7.1 6.1-8.1 g/dL ALBUMIN 3.6 3.8-4.8 g/dL ALPHA 1 GLOBULIN 0.3 0.2-0.3 g/dL ALPHA 2 GLOBULIN 0.8 0.5-0.9 g/dL BETA 1 GLOBULIN 0.5 0.4-0.6 g/dL BETA 2 GLOBULIN 0.5 0.2-0.5 g/dL GAMMA GLOBULIN 1.4 0.8-1.7 g/dL INTERPRETATION Hypoalbuminemia may be seen as a result of decreased protein synthesis or protein loss. No restricted band (M-spike) seen. ANCA SCREEN WITH MPO AND PR3 WITH REFLEX TO ANCA TITER (42039) Reviewed date:04/10/2025 05:25:02 PM Interpretation: Performing Lab:ADAL [facility] [id number] Gabriele Glynn, QmjvvvkygRB[address] Juan Antonio Delaney M.D.,PhD Notes/Report: 0 0 0 0 0 ANCA SCREEN Negative Negative ANCA screen uses indirect immunofluorescence to detect antibodies to neutrophil cytoplasmic antigens. A positive screen reflexes to titer and pattern. Patterns include cytoplasmic (c-ANCA) and perinuclear (p-ANCA) both of which are associated with vasculitis, and atypical p-ANCA which is associated with inflammatory bowel disease and other disorders. MYELOPEROXIDASE ANTIBODY <1.0 <1.0 AI Value Interpretation <1.0 AI: No Antibody Detected >or=1.0 AI: Antibody Detected Autoantibodies to myeloperoxidase (MPO) are commonly associated with the following small-vessel vasculitides: microscopic polyangiitis, polyarteritis nodosa, Churg-Balta syndrome, necrotizing and crescentic glomerulonephritis and occasionally granulomatosis with polyangiitis (GPA, Medina's). The perinuclear IFA pattern, (p-ANCA) is based largely on autoantibody to myeloperoxidase which serves as the primary antigen. These autoantibodies are present in active disease. PROTEINASE-3 ANTIBODY <1.0 <1.0 AI Value Interpretation <1.0 AI: No Antibody Detected >or=1.0 AI: Antibody Detected Autoantibodies to proteinase-3 (IN-3) are accepted as characteristic for granulomatosis with polyangiitis (GPA, Medina's), and are detectable in 95% of the histologically proven cases. The cytoplasmic IFA pattern, (c-ANCA), is based largely on autoantibody to IN-3 which serves as the primary antigen. These autoantibodies are present in active disease. Reason For Referral Reason consultation Diagnosis 1 Food intolerance (K9 0.49) Diagnosis 2 Leukocytosis, unspec ified type (D72.829) Diagnosis 3 Multiple food allerg ies (Z91.018) Diagnosis 4 Allergic reaction to alpha-gal (T78.1XXA) Diagnosis 5 Allergic dermatitis due to other chemical product (L23.5) Diagnosis 6 Lichen planus (L43.9 ) Referral Organization [facility] Referring Provider First Name Zoe Referring Provider Last Name [place] Referring Provider [facility] Referred Provider Immunology, [facility] Referred Provider Specialty Immunology General Notes Cheyanne Heard 2023 02:22:04 PM >Referral faxed. Clinical Notes DanyLorna 06/23/20 01:39:26 PM >pt called to let us know her appt has been made at [facility] Referral Priority Routine Referral Appointment Date 08/23/2024 Reason inpt sleep study Diagnosis 1 Hypersomnia (G47.10) Referral Organization [facility] Referring Provider First Name Zoe Referring Provider Last Name Referring Provider [facility] Procedure 1 POLYSOMNOGRAPHY, 4 O R MORE (56254) General Notes Cheyanne Heard 2024 11:52:21 AM >Ins card attached. Referral faxed.Félix Wendy 04/03/2025 07:57:35 AM >Rec'd confirmation from [facility] of referral rec'd. Next step is they will contact pt's insurance.Félix Wendy 04/04/2025 10:12:06 AM >Pt called stating ins not paying for home sleep study. Pt requesting alternate. Will try to get ins to approve a hospital sleep study.Félix Wendy 04/06/2025 09:11:40 AM >[facility] to be [facility] and faxed w/ request.Félix Wendy 04/19/2025 09:00:31 AM >TC to [facility] member services line. ([phone]) Was on hold for over 7 minutes. Could not continue to hold. [facility] does not process hospital sleep studies so I need to talk to the member services w/ health plan to proceed w/ this request. Will call back.Félix Wendy 05/03/2025 12:46:18 PM >TC to [facility]. Outpatient Medicaid auth form must be attached. , Faxed the required form and this order w/ progress note to [facility] at [phone].Félix Wendy 05/04/2025 04:13:05 PM >Prior auth approved., PATIENCE number: [id number], Effective dates: 05/03/25 to 08/03/25, Attached prior auth verification., Referral faxed.Félix Wendy 05/11/2025 10:44:59 AM >TC to [place] w/ [facility] Centralized Scheduling. Confirmed referral is pending. No appt yet.Félix Wendy 05/18/2025 12:32:20 PM >TC to Nena w/ [facility] Sleep Lab. Confirmed pt is on their list to call to schedule. They are a little behind w/ referrals. Referral Priority Routine Reason stat VENOUS doppler LLE. Diagnosis 1 Left leg swelling (M 79.89) Referral Organization [facility] Referring Provider First Name Zoe Referring Provider Last Name Referring Provider [facility]erred [facility] Procedure 1 VENOUS DOPPLER ext ( 14850) General Notes Cheyanne Heard 2024 01:23:21 PM >Insurance verification attached. No prior auth required. , Faxed referral.Félix Wendy 04/03/2025 02:48:43 PM >TC to [place] w/ [facility] Centralized Scheduling. Confirmed pt's appt is today at 5 pm. Pt notified of appt by their clinic. Referral Priority Stat Referral Appointment Date 04/03/2025 Reason consultation Diagnosis 1 Acute pain of left k nee (M25.562) Referral Organization [facility] Referring Provider First Name Zoe Referring Provider Last Name Referring Provider [facility] Referred Provider [facility], [facility] General Notes Cheyanne Heard 2024 01:25:07 PM >Referral faxed., Lorna Saenz 04/13/2025 02:58:01 PM >pt came by and said Ortho appt is set for 04/28/25 and they told her to Have Zoe send over order for the x-ray and they will just do it there so she doesn't have to make an extra trip, Cheyanne Heard 04/13/2025 04:41:00 PM >Xray order faxed to [facility] Ortho [facility] Sp[facility]. Referral Priority Routine Referral Appointment Date 04/28/2025 Medications Medication SIG (Take, Route, Frequency, Duration) Notes Start Date End Date Status Pimecrolimus 1 % APPLY ONE APPLICATION EXTERNALLY TWICE DAILY FOR 7 DAYS; Duration: 7 Active Albuterol Unknown Diclofenac Sodium 75 MG 1 tablet as need ed prn pain Orally Twice a day 04/05/2025 Active predniSONE 20 MG TAKE THREE TABLETS BY MOUTH ONCE DAILY FOR FOUR DAYS THEN TAKE 1 & 1/2 TABLETS ONCE DAILY FOR FOUR DAYS THEN TAKE ONE TABLET ONCE DAILY FOR FOUR DAYS THEN TAKE 1/2 TABLET ONCE DAILY FOR FOUR DAYS Oral; Duration: 16 Days 06/14/2024 Unknown Ondansetron HCl 4 MG 1 tablet as needed for nausea/vomiting Orally three times daily 01/06/2025 Active Advair Diskus 250-50 MCG/ACT 1 puff Inhalation Twice a day; Duration: 30 days Active Clobetasol Propionate 0.05 % apply TO THE AFFECTED AREA(S) topically TO LEGS ONCE DAILY AT night. add occlusive dressing (saran WRAP) FOR 15 DAYS; Duration: 15 Active Trelegy Ellipta 100-62.5-25 MCG/ACT 1 puff Inhalation Once a day 08/29/2024 Unknown Ozempic (0.25 or 0.5 MG/DOSE) 2 MG/3ML 0.5mg Subcutaneous weekly; Duration: 30 days month 1 2025 5 Active Omeprazole 20 mg TAKE ONE CAPSULE BY MOUTH ONCE DAILY 30 MINUTES BEFORE MORNING MEAL; Duration: 90 Active Escitalopram Oxalate 10 mg TAKE ONE TABLET BY MOUTH ONCE DAILY; Duration: 90 Active Ozempic (0.25 or 0.5 MG/DOSE) 2 MG/3ML 1mg Subcutaneous weekly; Duration: 30 days 06/23/2025 5 Active Varenicline Tartrate (Starter) 0.5 MG X 11 & 1 MG X 42 as directed Orally daily; Duration: 28 days 2025 Active Meloxicam 7.5 MG 1 tablet Orally Once a day Active Losartan Potassium 25 mg TAKE ONE TABLET BY MOUTH ONCE DAILY; Duration: 90 Active hydrOXYzine HCl 25 mg TAKE 1/2 TO 1 TABLET BY MOUTH EVERY 6 HOURS NEEDED FOR ITCHING/PANIC/ANXI ETY FOR 10 DAYS; Duration: 10 Active Nystatin 543728 UNIT/GM APPLY ONE APPLICATION TWICE DAILY; Duration: 15 Active Ventolin HFA 108 (90 Base) MCG/ACT INHALE 2 PUFFS BY MOUTH EVERY 4 HOURS; Duration: 2 Active Famotidine 20 mg TAKE ONE TO TWO TABLETS BY MOUTH ONCE DAILY FOR 30 DAYS; Duration: 30 Active Varenicline Tartrate (Starter) 0.5 MG X 11 & 1 MG X 42 as directed Orally month 2 and thereafter 06/23/2025 Active EPINEPHrine 0.3 MG/0.3ML as directed for r anahylaxis. Injection call EMS after injection. must go to ER. 07/24/2023 Active hydroCHLOROthiazide 12.5 MG 1 capsule in the morning Oral Once a day; Duration: 90 days Active Triamcinolone Acetonide 0.1 % APPLY TO THE AFFECTED AREA(S) ON TRUNK AND EXTREMITIES TWICE DAILY External; Duration: 30 Days 06/10/2024 Active Nystatin 959737 UNIT/GM APPLY ONE APPLICATION TO DIAPER/SKIN RASH EXTERNALLY TWICE DAILY FOR 10 DAYS; Duration: 10 Active Social History Tobacco Use: Social History Observation Description Date Details (start date - stop date) Current Smoker NA - NA Sex Assigned At : Social History Observation Description Sex Assigned At Female Tobacco Use/Smoking Question Answer Notes Tobacco use: current smoker Section Notes: actively working on quitting smoking 03/13/23 actively working on quitting smoking 03/13/23 Problems Problem Type SNOMED Code ICD Code Onset Dates Problem Status W/U Status Risk Notes Problem Seasonal allergy (145486417) Seasonal allergies (J30.2) Active confirmed Problem Eosinophil count above reference range (finding) (126358606) 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) Active confirmed Problem Primary hypertension (52029479) Primary hypertension (I10) Active confirmed Problem Gastroesophageal reflux disease (388156403) Gastroesophageal reflux disease, unspecified whether esophagitis present (K21.9) Active confirmed Problem Hyperglycemia due to type 2 diabetes mellitus (228882376145415) Type 2 diabetes mellitus with hyperglycemia, without long-term current use of insulin (E11.65) Active confirmed Problem Hypersomnia (62878366) Hypersomnia (G47.10) Active confirmed Problem Acute exacerbation of chronic obstructive airways disease (362737690) COPD exacerbation (J44.1) Active confirmed Problem Smoker (67281101) Smoker (F17.200) Active confi rmed Problem Anxiety depression (280055096) Anxiety with depression (F41.8) Active confirmed Problem Body mass index 40+ - severely obese (552358747) Body mass index (BMI) of 40.1 to 44.9 in adult (Z68.41) Active confirmed Problem Hematuria syndrome (54989318) Hematuria, unspecified type (R31.9) Active confirmed Problem Food intolerance (106929578) Food intolerance (K90.49) Active confirmed Problem Food allergy (574189223) Allergy to alpha-gal (Z91.018) Active confirmed Problem Leukocytosis (625900947) Leukocytosis, unspecified type (D72.829) Active confirmed Problem Food allergy (955908801) Multiple food allergies (Z91.018) Active confirmed Problem Allergic reactio n to alpha-gal (T78.1XXA) Active confirmed Problem Leukocytosis (732181476) Leukocytosis, unspecified (D72.829) Active confirmed Vital Signs Heart Rate 81 /min 2025 Temperature 97.8 degrees Fahrenheit 2025 Height-cm 163.83 cm 2025 Oximetry 97 % 2025 Blood pressure diastolic 55 mm Hg 2025 Weight-kg 110.31 kg 2025 Height 64.5 in 2025 Blood pressure systolic 120 mm Hg 2025 Weight 243.2 lbs 2025 BMI 41.1 kg/m2 2025 Encounters Encounter Location Date Provider Diagnosis [facility] [employer] [facility] [address] [address] 03/21/2025 Zoe Fernandez [facility] [address] [address] 04/03/2025 Zoe Fernandez Left leg swelling M79.[address] [address] 06/14/2024 Zoe Fernnadez Multiple food allerg ies Z91.018 ; Rash R21 ; Pruritus L29.9 ; Allergic reaction to alpha-gal T78.1XXA and Lichen planus L43.[address] [address] 08/15/2024 Zoe Fernandez Bronchitis with wheezing J40 and Right acute suppurative otitis media H66.[address] [address] 08/29/2024 Zoe Fernandez COPD exacerbation J4 4.[address] [address] 11/03/2024 Zoe Fernandez COPD exacerbation J4 4.1 ; Wheezing R06.2 ; Intertrigo L30.4 and COVID U07.[address] [address] 01/06/2025 Zoe Fernandez GE (gastroenteritis) K52.[address] [address] 03/23/2025 Zoe Fernandez Leukocytosis, unspecified D72.829 ; Other specified abnormal immunological findings in serum R76.8 and Other eosinophilia D72.[address] [address] 03/30/2025 Zoe Fernandez Hypersomnia G47.10 ; Trapezius muscle spasm M62.838 and BMI 40.0-44.9, adult Z68.[address] [address] 04/05/2025 Zoe Fernandez Acute pain of left k nee M25.562 and Cutaneous abscess of trunk, unspecified site of trunk L02.[address] [address] 05/16/2025 Zoe Fernandez Elevated fasting glucose R73.01 and Excessive sweating R61 [facility] [employer], [facility] [address] [place] [address] 2025 Zoe Fernandez Type 2 diabetes mellitus with hyperglycemia, without long-term current use of insulin E11.65 ; Body mass index (BMI) of 40.1 to 44.9 in adult Z68.41 and Smoker F17.200 [facility] [employer], [facility] [address] [place] [phone] 06/02/2024 [facility], [facility] [address] [place] [address] 06/16/2024 [facility], [facility] [address] [place] [phone] 08/18/2024 [facility], [facility] [address] [place] [phone] 09/13/2024 [facility], [facility] [address] [place] [phone] 09/14/2024 Replaced By [facility] [place] COPD exacerbation J4 4.1 [facility], [facility] [address] [place] [phone] 12/29/2024 [facility], [facility] [address] [place] [phone] 03/03/2025 [facility], [facility] [address] [place] [phone] 03/09/2025 [facility] [employer], [facility] [address] [place] [phone] 03/23/2025 [facility], [facility] [address] [place] [address] 04/04/2025 [facility], [facility] [address] [place] [phone] 04/13/2025 [facility], [facility] [address] [place] [phone] 05/02/2025 [facility], [facility] [address] [address] 05/25/2025 Zoe Fernandez Assessments Encounter Date Diagnosis (ICD Code) Assessment Notes Treatment Notes Treatment Clinical Notes Section Notes 06/14/2024 Multiple food allergies (ICD-10 - Z91.018) 06/14/2024 Rash (ICD-10 - R21) she will report progress in a few weeks, in response to the elidel rx 08/15/2024 Bronchitis with wheezing (ICD-10 - J40) 08/15/2024 Right acute suppurative otitis media (ICD-10 - H66.001) 08/29/2024 COPD exacerbation (ICD-10 - J44.1) she has failed advair and albuterol hx of smoking x30+ yr., with at least 2 exacerbations in past 6 mos. clean air exposure. no heavy fragrance/candles/ incense. 09/14/2024 COPD exacerbation (ICD-10 - J44.1) 11/03/2024 COPD exacerbation (ICD-10 - J44.1) 11/03/2024 Wheezing (ICD-10 - R06.2) 01/06/2025 GE (gastroenteritis) (ICD-10 - K52.9) clear liquids. advance diet slowly, simple carbs/brat diet. monitor for urine output x3 per 24hour. Call or return if worsening or not improving. Call or return if worsening or not improving. 03/23/2025 Leukocytosis, unspecified (ICD-10 - D72.829) [facility] CAN NOT DO THE IMMUNE COMPETENCE LAB PER ORDERING DOCTOR OFFICE PT IS AWARE labs drawn by Suri Monaco LPN draw for [facility] fax [phone] 03/30/2025 Hypersomnia (ICD-10 - G47.10) 03/30/2025 Trapezius muscle spasm (ICD-10 - M62.838) 04/03/2025 Left leg swelling (ICD-10 - M79.89) 04/05/2025 Acute pain of left knee (ICD-10 - M25.562) X-ray left knee, 3 view at [facility] I recommended elastic compression to the left knee rest, ice, elevate prn 04/05/2025 Cutaneous abscess of trunk, unspecified site of trunk (ICD-10 - L02.219) daily wash with antibacterial soap. keep covered if draining. can us otc BECKY. 05/16/2025 Elevated fasting glucose (ICD-10 - R73.01) 05/16/2025 Excessive sweating (ICD-10 - R61) 2025 Type 2 diabetes mellitus with hyperglycemia, without long-term current use of insulin (ICD-10 - E11.65) 2025 Body mass index (BMI) of 40.1 to 44.9 in adult (ICD-10 - Z68.41) 2025 Smoker (ICD-10 - F17.200) 03/30/2025 BMI 40.0-44.9, adult (ICD-10 - Z68.41) 03/23/2025 Other specified abnormal immunological findings in serum (ICD-10 - R76.8) 11/03/2024 Intertrigo (ICD-10 - L30.4) Keep skin clean and thoroughly dry. 06/14/2024 Pruritus (ICD-10 - L29.9) 06/14/2024 Allergic reaction to alpha-gal (ICD-10 - T78.1XXA) 11/03/2024 COVID (ICD-10 - U07.1) 03/23/2025 Other eosinophilia (ICD-10 - D72.19) 06/14/2024 Lichen planus (ICD-10 - L43.9) 06/14/2024 Other she will contac t derm at [facility] regarding her desire to pursue immunology consult 11/03/2024 Other Call or return if worsening or not improving. 08/15/2024 Other going to optical coating technician in [facility] next week. no antihistamines or steroids within 5 days before 03/21/2025 Other When You Want t o Lose Weight: Care Instructions material was printed, Learning About Cutting Calories material was printed, Body Mass Index: Care Instructions material was printed Plan Of Treatment Pending Test Test Name Order Date ALPHA GAL PANEL (09633) 06/19/2023 SUREPATH PAP REFL HPV DNA ([id number]) 2022 Next Appt Details Provider Name:Zoe Fernandez , 08/24/2025 08:10:00 AM, [address], [address] [place], [address], Provider Name:Zoe Fernandez , 08/31/2025 09:20:00 AM, [address] [address], [place], [address], Insurance Providers Payer Name Payer Address Payer Phone Subscriber Number Group Number Insured Name Patient Relationship to Insured Coverage Start Date Coverage End Date [employer] [facility] [address] [place] [address] [id number] YesiluzmariaDominique Self - patient is the insured 3 Medical (General) History Medical History History ICD Code Hx of high blood pressure smoker since age 18. smokes 1/2 ppd. PAP: normal 02/2023 MAMMO: due june
[2025-05-28 16:43] VITALS: RESP 16
[2025-05-28] MEDS: morphine 4 mg/mL SDV 1 mL IVP (16:43)
[2025-05-28 16:58] LABS: Hematocrit 42.0 % (36-47); Hemoglobin 13.80 g/dL (11.27-16.99); Mean Corpuscular HGB Conc 32.9 g/dL (30-55); Mean Corpuscular Hemoglobin 30.4 pg (27-33); Mean Corpuscular Volume 92.5 fl (85-98); Nucleated Red Blood Cells % 0 %; Platelet Count 298 10^3/cmm (157-399); Red Blood Count 4.54 10^6/uL (3.85-5.65); White Blood Count 17.13 10^3/uL (3.29-11.43)
[2025-05-28 17:10] LABS: INR 0.91 (0.8-1.2); Prothrombin Time 12.90 SECONDS (12.1-14.9)
[2025-05-28] MEDS: iohexol 350 mg/mL 500 mL Btl (per mL) IV (17:12)
[2025-05-28 17:18] LABS: Troponin(5th) Baseline < 6 ng/L (0-10)
[2025-05-28 17:20] LABS: Alanine Aminotransferase 19 U/L (0-33); Albumin Level 3.6 g/dL (3.5-5.2); Alkaline Phosphatase 95 U/L (35-105); Anion Gap 16.3 (5-19); Aspartate Amino Transferase 13 U/L (0-32); Blood Urea Nitrogen 14 mg/dL (6-20); Calcium 8.7 mg/dL (8.5-10.5); Carbon Dioxide 26 mmol/L (22-29); Chloride 100 mmol/L (98-107); Creatinine Clr Calc Pharmacy 120.5402; Globulin 3.0 g/dL (1.3-4.6); Glucose 118 mg/dL (65-115); Lipase 22 U/L (13-60); Osmolality Calculated 288 mOsm/kg (285-295); Potassium 4.3 mmol/L (3.5-5.1); Sodium 138 mmol/L (136-145); Total Protein 6.6 g/dL (6.6-8.7)
[2025-05-28 17:40] VITALS: BP 139/73; PULSE 83; RESP 17; O2SAT 94
--- NOTE | 2025-05-28 18:24 | ECG_ITS ---
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 Measurements Intervals [place] Rate: 72 P: -12 [place]: 153 QRS: 13 QRSD: 90 T: 16 QT: 386 QTc: 423 Interpretive Statements SINUS RHYTHM Compared to ECG 05/28/2025 16:26:49 No significant changes Electronically Signed On 05-30-2025 08:41:48 CDT by Delano Darling M.D. [id number] [id number]
[2025-05-28 19:25] LABS: Troponin 5 2HR < 6.0 ng/L (0-10); Troponin 5 2HR Delta 0 ABS# (0-10)
[2025-05-28 19:59] VITALS: BP 137/89; PULSE 65; RESP 18; O2SAT 94
== END 2025-05-28 20:00 | disposition home or self-care (01) ==
PROVIDERS: Emergency Medicine; Emergency Provider Physician Assistant; PCP Nurse Practitioner
DX: R07.81 Pleurodynia (principal); F17.210 Nicotine dependence, cigarettes, uncomplicated
CPT/HCPCS: 36415; 71045; 71275; 80053; 83690; 84484; 85025; 85610; 93005; 93010; 96374; 99285; J2270

== ENCOUNTER 2025-06-13 20:00 | Outpatient (CLI) | payer MEDICAID, SELFPAY | END 2025-06-13 20:01 | disposition home or self-care (01) | LOC: SLEEP 06-14 00:57 | PROVIDERS: PCP Nurse Practitioner; Visit Provider Internal Medicine Pulmonary Disease | DX: G47.33 Obstructive sleep apnea (adult) (pediatric) (principal); G47.36 Sleep related hypoventilation in conditions classified elsewhere | CPT/HCPCS: 95810 ==

== ENCOUNTER 2025-06-23 05:00 | Outpatient (RCR) | payer MEDICAID, SELFPAY | END 2025-07-23 23:59 | disposition home or self-care (01) | LOC: GPT 05:00 | PROVIDERS: PCP Nurse Practitioner; Visit Provider Orthopaedic Surgery | DX: M54.50 Low back pain, unspecified (principal); G89.29 Other chronic pain | CPT/HCPCS: 97110; 97112; 97140; 97164 ==

== ENCOUNTER 2025-08-15 00:29 | Emergency (ER) | payer MEDICAID, SELFPAY ==
--- OUTSIDE RECORDS SUMMARY | 2025-06-01 06:00 | XMS_ITS ---
Author Organization [facility] Address [address] [address] Care Team Providers Care Investor Relations Director Name Role Phone Zoe Fernandez Unavailable [phone] Allergies Allergen (clinical drug ingredient) Drug/Non Drug Allergy documented on EMR Reaction Allergy Type Onset Date Status sulfamethoxazole / trimethoprim Bactrim severe rash Drug Allergy Active Latex Latex rash Allergy Active lisinopril Lisinopril cough Drug Allergy Activ e Substance with sulfonamide structure and antibacterial mechanism of action (substance) Sulfa Antibiotics rash Drug Allergy Active Damion Passion Fruit OS angioedema Drug Allergy Active Reason For Referral Reason chest ct without. oz h due 11/2025 Diagnosis 1 Lung nodule (R91.1) Referral [facility] Referring Provider First Name Zoe Referring Provider Last Name Richards Referring Provider [facility] Referred Provider Centralized Scheduli , [facility] Procedure [address] THORAX W/O DYE (2 4374) General Notes Cheyanne Heard 2024 01:21:14 PM >Ins card attached., Need to wait closer to when test is due as ins won't approve prior auth until closer to due date.Félix Wendy 07/03/2025 08:14:51 AM >Prior auth approved. PA number: [id number] w/ effective dates 06/28/25 to 09/27/25. Prior auth approval attached., Referral faxed.Félix Wendy 07/03/2025 10:06:12 AM >correction, The above prior auth information was for pt's sleep titration study and NOT the CT. Referral Priority Routine REASON FOR VISIT [facility] f/u; requested records 05/30/25 wmd Medications Medication SIG (Take, Route, Frequency, Duration) Notes Start Date End Date Status Ondansetron HCl 4 MG 1 tablet as needed for nausea/vomiting Orally three times daily 01/06/2025 Active Clobetasol Propionate 0.05 % apply TO THE AFFECTED AREA(S) topically TO LEGS ONCE DAILY AT night. add occlusive dressing (saran WRAP) FOR 15 DAYS; Duration: 15 Active Omeprazole 20 mg TAKE ONE CAPSULE BY MOUTH ONCE DAILY 30 MINUTES BEFORE MORNING MEAL; Duration: 90 Active Pimecrolimus 1 % APPLY ONE APPLICATION EXTERNALLY TWICE DAILY FOR 7 DAYS; Duration: 7 Active Escitalopram Oxalate 10 mg TAKE ONE TABLET BY MOUTH ONCE DAILY; Duration: 90 Active Ventolin HFA 108 (90 Base) MCG/ACT INHALE 2 PUFFS BY MOUTH EVERY 4 HOURS; Duration: 2 Active hydrOXYzine HCl 25 mg TAKE 1/2 TO 1 TABLET BY MOUTH EVERY 6 HOURS NEEDED FOR ITCHING/PANIC/ANXI ETY FOR 10 DAYS; Duration: 10 Active Triamcinolone Acetonide 0.1 % APPLY TO THE AFFECTED AREA(S) ON TRUNK AND EXTREMITIES TWICE DAILY External; Duration: 30 Days 06/10/2024 Active EPINEPHrine 0.3 MG/0.3ML as directed for r anahylaxis. Injection call EMS after injection. must go to ER. 07/24/2023 Active Meloxicam 7.5 MG 1 tablet Orally Once a day Active Nystatin 168915 UNIT/GM APPLY ONE APPLICATION TO DIAPER/SKIN RASH EXTERNALLY TWICE DAILY FOR 10 DAYS; Duration: 10 Active predniSONE 20 MG TAKE THREE TABLETS BY MOUTH ONCE DAILY FOR FOUR DAYS THEN TAKE 1 & 1/2 TABLETS ONCE DAILY FOR FOUR DAYS THEN TAKE ONE TABLET ONCE DAILY FOR FOUR DAYS THEN TAKE 1/2 TABLET ONCE DAILY FOR FOUR DAYS Oral; Duration: 16 Days 06/14/2024 Unknown Albuterol Unknown Trelegy Ellipta 100-62.5-25 MCG/ACT 1 puff Inhalation Once a day 08/29/2024 Unknown Diclofenac Sodium 75 mg TAKE ONE TABLET BY MOUTH TWICE DAILY NEEDED FOR PAIN; Duration: 10 Active Ozempic (0.25 or 0.5 MG/DOSE) 2 MG/3ML 1mg Subcutaneous weekly; Duration: 30 days 06/23/2025 Active Ozempic (0.25 or 0.5 MG/DOSE) 2 MG/3ML 0.5mg Subcutaneous weekly; Duration: 30 days month 1 2025 Active Advair Diskus 250-50 MCG/ACT 1 puff Inhalation Twice a day; Duration: 30 days Active Varenicline Tartrate (Starter) 0.5 MG X 11 & 1 MG X 42 as directed Orally month 2 and thereafter 06/23/2025 Active Varenicline Tartrate (Starter) 0.5 MG X 11 & 1 MG X 42 as directed Orally daily; Duration: 28 days 2025 Active Famotidine 20 mg TAKE ONE TO TWO TABLETS BY MOUTH ONCE DAILY FOR 30 DAYS; Duration: 30 Active Nystatin 194713 UNIT/GM APPLY ONE APPLICATION TWICE DAILY; Duration: 15 Active hydroCHLOROthiazide 12.5 MG 1 capsule in the morning Oral Once a day; Duration: 90 days Active Losartan Potassium 25 mg TAKE ONE TABLET BY MOUTH ONCE DAILY; Duration: 90 Active Social History Sex Assigned At : Social History Observation Description Sex Assigned At Female Vital Signs Temperature 98.1 degrees Fahrenheit 06/01/20 25 Blood pressure systolic 128 mm Hg 06/01/20 25 Blood pressure diastolic 77 mm Hg 025 Heart Rate 78 /min 06/01/2025 Height 64.5 in 06/01/2025 Weight 250.8 lbs 06/01/2025 BMI 42.38 kg/m2 06/01/2025 Oximetry 98 % 06/01/2025 Height-cm 163.83 cm 06/01/2025 Weight-kg 113.76 kg 06/01/2025 Encounters Encounter Location Date Provider Diagnosis [address] [address] 06/01/2025 Zoe Fernandez Lung nodule R91.1 Assessments Encounter Date Diagnosis (ICD Code) Assessment Notes Treatment Notes Treatment Clinical Notes Section Notes 06/01/2025 Lung nodule (ICD-10 - R91.1) Plan Of Treatment Referrals Referral Date Details 06/01/2025 06/01/2025, chest ct without. [facility] due 11/2025, [facility] Centralized Scheduling Next Appt Details Provider Name:Zoe Fernandez , 08/15/2025 09:45:00 AM, [address] [place] [address], [address], [address], Provider Name:Zoe Fernandez , 08/24/2025 08:10:00 AM, [address] [place] [address], [address], [address], Provider Name:Zoe Fernandez , 08/31/2025 09:20:00 AM, [address] [place] [address], [address], [address], Progress Notes * Dominique NAYLOR EDOB: 6 (50 yo F)Acc No.[id number]:06/01/2025 Patient: Dominique CARBONE Provider: Jenna Fernandez :1975 A ge:50 Y S ex:Female Date:06/01/2025 Address:[address] [place], [place] [id number] Subjective: * Chief Complaints: * 1 . [facility] hospital f/u; requested records 05/30/25 wmd. * HPI: T ransition of Care: Here today for ER f/u [facility] ER 05/28/25 for c/o chest pain Troponin levels were unremarkable all other labs normal except elevated WBC at 17,000 -chronic leukocytosis -recent rx of steroid Chest x-ray normal -incidental finding of small 7mm nodule at left upper lobe-Hamart[place] future CT of Chest recommended-not scheuduled at time of ER visit D/C dx: Pleuritic Chest Pain No med changes made at this ER visit D/C home 05/28/25 she hasn't started chantix yet. * ROS: G eneral / Constitutional: Patient denies f ever. E NT: Patient denies p ain. R espiratory: Patient denies d ifficulty breathing. C ardiovascular: Patient denies c hest pain. * Medical History: H x of high blood pressure, Smoker since age 18. smokes 1/2 ppd., PAP: normal 02/2023, MAMMO: due june. * Medications: T aking Meloxicam 7.5 MG Tablet 1 tablet Orally Once a day , Taking EPINEPHrine 0.3 MG/0.3ML Solution Prefilled Syringe as directed forr anahylaxis. Injection , Notes to Pharmacist: call EMS after injection. must go to ER., Taking Triamcinolone Acetonide 0.1 % Ointment APPLY TO THE AFFECTED AREA(S) ON TRUNK AND EXTREMITIES TWICE DAILY External , Taking hydrOXYzine HCl 25 mg Tablet TAKE 1/2 TO 1 TABLET BY MOUTH EVERY 6 HOURS NEEDED FOR ITCHING/PANIC/ANXIETY FOR 10 DAYS , Taking Ventolin HFA 108 (90 Base) MCG/ACT Aerosol Solution INHALE 2 PUFFS BY MOUTH EVERY 4 HOURS , Taking Ondansetron HCl 4 MG Tablet 1 tablet as needed for nausea/vomiting Orally three times daily , Taking Clobetasol Propionate 0.05 % Ointment apply TO THE AFFECTED AREA(S) topically TO LEGS ONCE DAILY AT night. add occlusive dressing (saran WRAP) FOR 15 DAYS , Taking Pimecrolimus 1 % Cream APPLY ONE APPLICATION EXTERNALLY TWICE DAILY FOR 7 DAYS , Taking Omeprazole 20 mg Capsule Delayed Release TAKE ONE CAPSULE BY MOUTH ONCE DAILY 30 MINUTES BEFORE MORNING MEAL , Taking Escitalopram Oxalate 10 mg Tablet TAKE ONE TABLET BY MOUTH ONCE DAILY , Taking Losartan Potassium 25 mg Tablet TAKE ONE TABLET BY MOUTH ONCE DAILY , Taking hydroCHLOROthiazide 12.5 MG Capsule 1 capsule in the morning Oral Once a day , Taking Nystatin 037315 UNIT/GM Cream APPLY ONE APPLICATION TWICE DAILY , Taking Famotidine 20 mg Tablet TAKE ONE TO TWO TABLETS BY MOUTH ONCE DAILY FOR 30 DAYS , Taking Advair Diskus 250-50 MCG/ACT Aerosol Powder Breath Activated 1 puff Inhalation Twice a day , Taking Ozempic (0.25 or 0.5 MG/DOSE) 2 MG/3ML Solution Pen-injector 0.5mg Subcutaneous weekly , stop date 06/23/2025, Notes to Pharmacist: month 1, Taking Ozempic (0.25 or 0.5 MG/DOSE) 2 MG/3ML Solution Pen-injector 1mg Subcutaneous weekly , stop date 07/23/2025, Taking Varenicline Tartrate (Starter) 0.5 MG X 11 & 1 MG X 42 Tablet Therapy Pack as directed Orally daily , stop date 06/21/2025, Taking Varenicline Tartrate (Starter) 0.5 MG X 11 & 1 MG X 42 Tablet Therapy Pack as directed Orally , Notes to Pharmacist: month 2 and thereafter, Taking Nystatin 205306 UNIT/GM Powder APPLY ONE APPLICATION TO DIAPER/SKIN RASH EXTERNALLY TWICE DAILY FOR 10 DAYS , Taking Diclofenac Sodium 75 mg Tablet Delayed Release TAKE ONE TABLET BY MOUTH TWICE DAILY NEEDED FOR PAIN , Unknown Trelegy Ellipta 100-62.5-25 MCG/ACT Aerosol Powder Breath Activated 1 puff Inhalation Once a day , Unknown Albuterol , Unknown predniSONE 20 MG Tablet TAKE THREE TABLETS BY MOUTH ONCE DAILY FOR FOUR DAYS THEN TAKE 1 & 1/2 TABLETS ONCE DAILY FOR FOUR DAYS THEN TAKE ONE TABLET ONCE DAILY FOR FOUR DAYS THEN TAKE 1/2 TABLET ONCE DAILY FOR FOUR DAYS Oral , Medication List reviewed and reconciled with the patient * Allergies: B actrim: severe rash, [place] Passion Fruit OS: angioedema, Sulfa Antibiotics: rash - Allergy - Criticality High, Lisinopril: cough, Latex: rash - Criticality Low. Objective: * Vitals: B P:128/77mm Hg, HR:78/min, Temp:98.1F, Oxygen sat %:98%, Wt:250.8lbs, Wt-k.76 kg, Ht: 64.5 in, Ht-cm: 163.83 cm, BMI:42.38Index, Body Surface Area: 2.27. * Examination: G eneral Examination: General appearance: [...] and no rales, rhonchi or wheezes . Extremities: f ull range of motion normal extremity with no clubbing, cyanosis or edema . Peripheral pulses: n ormal 2+ arterial pulses . Neurologic: a lert and oriented . Psych: n ormal affect / mood . Assessment: * Assessment: 1. L sheryl nodule - R91.1 (Primary) Plan: * Treatment: * Billing Information: * Visit Code: * Procedure Codes: * Electronic signature of Dave Fernandez FNPBCMSN on 08/15/2025 at 12:37 AM CDT Sign off status: Pending * Provider: Jenna Fernandez Date: 0 06/01/2025 Generated for Justin potts/Deven/eTransmitting on: 0 08/15/2025 12:37 AM CDT History and Physical Notes * HPI (History of Present Illness) Category Sub-Category Detail Notes Category Not es Transition of Care Here today for ER f/u [facility] ER 05/28/25 for c/o chest pain Troponin levels were unremarkable all other labs normal except elevated WBC at 17,000 -chronic leukocytosis -recent rx of steroid Chest x-ray normal -incidental finding of small 7mm nodule at left upper lobe-[place] future CT of Chest recommended-not scheuduled at time of ER visit D/C dx: Pleuritic Chest Pain No med changes made at this ER visit D/C home 05/28/25 she hasn't started chantix yet Examination Category Sub-Category Detail Notes Category Not [...] rhonchi or wheezes Neurologic: alert and oriented Extremities: full range of motion normal extremity with no clubbing, cyanosis or edema Peripheral pulses: normal 2+ arterial p ulses Lymph nodes: no cervical lymphade nopathy Psych: normal affect / mood Oral cavity: normal Consultation Request Notes Referral Date Referring Provider Referred Provider Not es 06/01/2025 Zoe Fernandez Centralized Scheduling, [facility] chest ct without. ozh due 11/2025
--- OUTSIDE RECORDS SUMMARY | 2025-07-27 05:10 | XMS_ITS ---
Author Organization [facility] [employer] [facility] Address [address] [place] [address] Care Team Providers Care Insurance Policy Issue Clerk Name Role Phone Zoe Fernandez [phone] REASON FOR VISIT cough/sinus Social History Sex Assigned At : Social History Observation Description Sex Assigned At Female Encounters [facility] [address] [address] 07/27/2025 Zoe Fernandez Plan Of Treatment Next Appt Details Provider Name:Zoe Fernandez , 08/15/2025 09:45:00 AM, [address] [place] [address], [address], Provider Name:Zoe Fernandez , 08/24/2025 08:10:00 AM, [address] [place] [address], [address], Provider Name:Zoe Fernandez , 08/31/2025 09:20:00 AM, [address] [place] [address], [phone], Progress Notes * Dominique NAYLOR EDOB: 6 (50 yo F)Acc No.[id number]:07/27/2025 Patient: Dominique CARBONE Provider: Jenna Fernandez :1975 A ge:50 Y S ex:Female Date:07/27/2025 Address:[address] [place], [place] [id number] Subjective: * Chief Complaints: * 1 . Cough/sinus. * Medical History: Objective: * Vitals: Assessment: Plan: * Treatment: * Billing Information: * Visit Code: * Procedure Codes: * Electronic signature of Dave Fernandez FNPBCMSN on 08/15/2025 at 12:37 AM CDT Sign off status: Pending * Provider: Jenna Fernandez Date: 07/27/2025 Generated for Justin Morris/Doc on: 08/15/2025 12:37 AM CDT
--- NOTE | 2025-08-15 00:31 | XRR_ITS ---
PROCEDURE INFORMATION: Exam: XR Chest Exam date and time: 08/15/2025 12:44 AM Age: 50 years old Clinical indication: Short of breath x3 weeks. PT has completed 2 rounds of steroids and abx. Increased shortness of breath tonight. Coughing up small amount of blood. Bright red blood streaks in sputum. Albuterol tx q 4 hours which helps for a short while. ; Additional info: SOB TECHNIQUE: Imaging protocol: Radiologic exam of the chest. Views: 1 view. COMPARISON: CT angio chest PE prot [id number] 05/28/2025 5:03 PM FINDINGS: Lungs: Known left upper lobe pulmonary nodule is better characterized on prior CT chest from 05/28/2025. No consolidation. Pleural spaces: Unremarkable. No pleural effusion. No pneumothorax. Heart/Mediastinum: Unremarkable. No cardiomegaly. Bones/joints: Unremarkable. XR/XR chest 1V portable [id number] IMPRESSION: No acute findings.
[2025-08-15 00:35] VITALS: BP 145/110; PULSE 98; RESP 22; TEMP 36.9; O2SAT 94; BMI 41.1
--- NOTE | 2025-08-15 00:35 | ECG_ITS ---
[employer] [facility] Test Date: 2025-08-15 Pat Name: Dominique Naylor Department: Room: Gender: Female Document Examiner: : 1975 Requested By: Sanjeev Hoskins Order Number: [id number] Shea MD: Abdulaziz Carrasco M.D. Measurements Intervals [place] Rate: 84 P: -25 IN: 144 QRS: 6 QRSD: 94 T: 36 QT: 344 QTc: 408 Interpretive Statements SINUS RHYTHM Compared to ECG 05/28/2025 18:21:08 No significant changes Electronically Signed On 08-16-2025 21:24:06 CDT by Abdulaziz Carrasco M.D. [id number]
--- OUTSIDE RECORDS SUMMARY | 2025-08-15 00:38 | XMS_ITS | Patient Health Record ---
Author Organization [employer] [place] [employer] [facility] Address [address] [address] Care Team Providers Care Digitizer Operator Name Role Phone Zoe Fernandez Unavailable [phone] Allergies Allergen (clinical drug ingredient) Drug/Non Drug Allergy documented on EMR Reaction Allergy Type Onset Date Status sulfamethoxazole / trimethoprim Bactrim severe rash Drug Allergy Active Latex Latex rash Allergy Active lisinopril Lisinopril cough Drug Allergy Activ e Substance with sulfonamide structure and antibacterial mechanism of action (substance) Sulfa Antibiotics rash Drug Allergy Active Mckenney Passion Fruit OS angioedema Drug Allergy Active Results Component Value Reference Range Notes ANCA SCREEN WITH MPO AND PR3 WITH REFLEX TO ANCA TITER ([id number]) Reviewed date:04/10/2025 05:25:02 PM Interpretation: Performing Lab:[facility], [facility] [id number] [facility], [place], ZwcyjytbmPL[address] Juan Antonio Delaney M.D.,PhD Notes/Report: 0 0 [...] >or=1.0 AI: Antibody Detected Autoantibodies to proteinase-3 (MO-3) are accepted as characteristic for granulomatosis with polyangiitis (GPA, Medina's), and are detectable in 95% of the histologically proven cases. The cytoplasmic IFA pattern, (c-ANCA), is based largely on autoantibody to MO-3 which serves as the primary antigen. These autoantibodies are present in active disease. PROTEIN, TOTAL AND PROTEIN E LECTROPHORESIS W/ REFL LYNDON (30173) Reviewed date:04/10/2025 05:25:02 PM Interpretation: Performing Lab:EVELIA [facility]-[id number] Neal Carreno, [id number] Gloria Barcenas MD Notes/Report: 0 0 0 [...] protein loss. No restricted band (M-spike) seen. SED RATE BY RAHUL STEVENS (149) Reviewed date:04/10/2025 05:25:02 PM Interpretation: Performing Lab:EVELIA [facility]-Zgiruv95066 Neal Carreno, [id number] Gloria Barcenas MD Notes/Report: 0 0 0 0 0 SED RATE BY MODIFIED ELIZ 9 < OR = 20 mm/h IMMUNOGLOBULIN G (543) Reviewed date:04/10/2025 05:25:02 PM Interpretation: Performing Lab:Greg [facility]-Ctmkly51705 Neal Carreno, PqpnzlQY[address] Gloria Barcenas MD Notes/Report: 0 0 0 0 0 IMMUNOGLOBULIN G 4899 008-4955 mg/dL IMMUNOGLOBULIN M (545) Reviewed date:04/10/2025 05:25:02 PM Interpretation: Performing Lab:Greg [facility]-Omfyfq81706 Neal Carreno, IglqjnMA[address] Gloria Barcenas MD Notes/Report: 0 0 0 0 0 IMMUNOGLOBULIN M 72 50-300 mg/dL ASPERGILLUS FUMIGATUS (M3) I GE (8035) Reviewed date:04/10/2025 05:25:03 PM Interpretation: Performing Lab:Greg [facility]O-Nclkzk48731 Neal Carreno, UecgrfLG[address] Gloria Barcenas MD Notes/Report: 0 0 0 [...] analytical performance characteristics have been determined by [facility]. It has not been cleared or approved by the U.S. Food and Drug Administration. This assay has been validated pursuant to the CLIA regulations and is used for clinical purposes. STRONGYLOIDES AB (IGG) (3430 9) Reviewed date:04/10/2025 05:25:03 PM Interpretation: Performing Lab:Greg SALES/[facility],[address] [facility] Shona Davis MD,PhD,AISLINN Notes/Report: 0 0 0 [...] other helminth infections. ASPERGILLUS FUMIGATUS (M3) I GG (16300) Reviewed date:04/10/2025 05:25:03 PM Interpretation: Performing Lab:HENRRY [facility],[address] [facility] Shona Davis MD,PhD,AISLINN Notes/Report: 0 0 0 0 0 ASPERGILLUS FUMIGATUS (M3) IGG 126.0 <2.0 mcg/mL This test was performed using a kit that has not been cleared or approved by the FDA. The analytical performance characteristics of this test have been determined by [facility]. This test should not be used for diagnosis without confirmation by other medically established means. COMPREHENSIVE METABOLIC PANE L (75023) Reviewed date:2025 02:15:34 PM Interpretation: Performing Lab:EVELIA [facility]-Vjuhaq59734 Neal Layne, TkpmuxMY[address] Gloria Barcenas MD Notes/Report: 0 0 0 [...] 17 10-35 U/L ALT 23 6-29 U/L HEMOGLOBIN A1c (496) Reviewed date:2025 02:15:34 PM Interpretation: Performing Lab:Greg ALTAMIRANO [place] Gloria Barcenas MD Notes/Report: 0 0 0 [...] A1c for diagnosis of diabetes for children. T3, TOTAL (859) Reviewed date:2025 02:15:34 PM Interpretation: Performing Lab:Greg ALTAMIRANO [place] Gloria Barcenas MD Notes/Report: 0 0 0 0 T3, TOTAL 85 76-181 ng/dL TSH W/REFLEX TO FT4 (41841) Reviewed date:2025 02:15:34 PM Interpretation: Performing Lab:Greg ALTAMIRANO [place] Gloria Barcenas MD Notes/Report: 0 0 0 0 TSH W/REFLEX TO FT4 0.52 Reference Range > or = 20 Years 0.40-4.50 Ranges First trimester 0.26-2.66 Second trimester 0.55-2.73 Third trimester 0.43-2.91 Reason For Referral Reason inpt sleep study Diagnosis 1 Hypersomnia (G47.10) Referral Organization [facility] [employer] Referring Provider First Name Zoe Referring Provider Last Name Referring Provider [facility] cherylepr Referred Provider Centralized Jose potts [facility] Procedure 1 POLYSOMNOGRAPHY, 4 O R MORE (70647) General Notes Cheyanne Heard 2024 11:52:21 AM >Ins card attached. Referral faxed.Félix Wendy 04/03/2025 07:57:35 AM >Rec'd confirmation from [facility] of referral rec'd. Next step is they will contact pt's insurance.Félix Wendy 04/04/2025 10:12:06 AM >Pt called stating ins not paying for home sleep study. Pt requesting alternate. Will try to get ins to approve a hospital sleep study.Félix Wendy 04/06/2025 09:11:40 AM >[facility] requires a PA and their form to be completed and faxed w/ request.Félix Wendy 04/19/2025 09:00:31 AM >TC to [facility] member services line. ([phone]) Was on hold for over 7 minutes. Could not continue to hold. [facility] does not process hospital sleep studies so I need to talk to the member services w/ health plan to proceed w/ this request. Will call back.Félix Wendy 05/03/2025 12:46:18 PM >TC to [facility]. Outpatient Medicaid auth form must be attached. , Faxed the required form and this order w/ progress note to [facility] at [phone].Félix Wendy 05/04/2025 04:13:05 PM >Prior auth approved., PA number: [id number], Effective dates: 05/03/25 to 08/03/25, Attached prior auth verification., Referral faxed.Félix Wendy 05/11/2025 10:44:59 AM >TC to Jaclyn carranza/ [facility] Centralized Scheduling. Confirmed referral is pending. No appt yet., Cheyanne Heard 05/18/2025 12:32:20 PM >TC to Nena w/ [facility] Sleep Lab. Confirmed pt is on their list to call to schedule. They are a little behind w/ referrals., Cheyanne Heard 05/29/2025 10:33:35 AM >Attempt TC to [facility] sleep lab. Left message to return my call., Cheyanne Heard 05/29/2025 01:00:11 PM >TC from [facility] Sleep [facility]. Confirmed appt 06/13/25 at 8 pm. Pt notified of appt by their clinic. Referral Priority Routine Referral Appointment Date 06/13/2025 Reason stat VENOUS doppler LLE. Diagnosis 1 Left leg swelling (M 79.89) Referral Organization [facility] Referring Provider First Name Zoe Referring Provider Last Name Referring Provider [facility] Referred Provider Centralized Scheduli [facility] Procedure 1 VENOUS DOPPLER ext ( 85689) General Notes Cheyanne Heard 2024 01:23:21 PM >Insurance verification attached. No prior auth required. , Faxed referral., Cheyanne Heard 04/03/2025 02:48:43 PM >TC to [facility]/ [facility] Centralized Scheduling. Confirmed pt's appt is today at 5 pm. Pt notified of appt by their clinic. Referral Priority Stat Referral Appointment Date 04/03/2025 Reason consultation Diagnosis 1 Acute pain of left k nee (M25.562) Referral Organization [facility] Referring Provider First Name Zoe Referring Provider Last Name Referring Provider [facility] Referred Provider [facility], [facility] General Notes Cheyanne Heard 2024 01:25:07 [...] 04/13/2025 04:41:00 PM >Xray order faxed to [facility]. Referral Priority Routine Referral Appointment Date 04/28/[address] without. oz h due 11/2025 Diagnosis 1 Lung nodule (R91.1) Referral Organization [facility] [employer] Referring Provider First Name Zoe Referring Provider Last Name [place] Referring Provider [facility] Referred Provider Centralized [facility] Procedure [address] CT THORAX W/O DYE (7 1250) General Notes Cheyanne Heard 2024 01:21:14 PM >Ins card attached., Need to wait closer to when test is due as ins won't approve prior auth until closer to due date., Cheyanne Heard 07/03/2025 08:14:51 AM >Prior auth approved. PA number: [id number] w/ effective dates 06/28/25 to 09/27/25. Prior auth approval attached., Referral faxed.Félix Wendy 07/03/2025 10:06:12 AM >correction, The above prior auth information was for pt's sleep titration study and NOT the CT. Referral Priority Routine Reason cpap titration Diagnosis 1 Hypersomnia (G47.10) Referral Organization [facility] [employer] Referring Provider First Name Zoe Referring Provider Last Name [place] Referring Provider [facility] Referred Provider Centralized [facility] Procedure 1 POLYSOMNOGRAPHY W/CP AP (36727) General Notes Cheyanne Heard 2024 12:07:32 PM >Insurance card and recent sleep study report attached., Cheyanne Heard 06/28/2025 12:19:29 PM >Faxed [facility] prior auth form and this referral to [facility] for approval.Félix Wendy 07/03/2025 10:10:06 AM >Prior auth approved. PA number: [id number] w/ effective dates 06/28/25 to 09/27/25., Prior auth verification attached. Referral faxed.Félix Wendy 07/05/2025 02:46:10 PM >TC to [facility] Centralized Scheduling. Confirmed receipt of referral. No appt yet., Cheyanne Heard 07/10/2025 01:07:00 PM >TC to [facility] Centralized Scheduling. No appt yet. Referral is pending. Was told nothing else needed from provider for this referral. They should be reaching out to pt soon to schedule., Cheyanne Heard 07/12/2025 04:07:30 PM >Attempt TC to pt. Left message to return my call., Cheyanne Heard 07/13/2025 02:49:58 PM >TC to [facility] Centralized Scheduling. No appt yet. Was told to call the [facility] Sleep [facility] to confirm appt. , TC to [facility] Sleep [facility]. Was told they couldn't get a hold of pt., Cheyanne Heard 07/13/2025 02:51:15 PM >Provided Lauren w/ the sleep lab. Provided her the 2 emergency contact phone numbers., Cheyanne Heard 07/13/2025 02:54:26 PM >Attempt TC to pt's spouse, Jose. Number not correct. TC to pt's mom/emergencycontact, Snehal. Left number for the sleep lab for pt to call.Félix Wendy 07/19/2025 03:31:09 PM >TC to [facility] Sleep Lab. Confirmed pt's appt 08/22/25 at 8 pm. Pt notified of appt by their clinic. Referral Priority Routine Referral Appointment Date 08/22/2025 Medications Medication SIG (Take, Route, Frequency, Duration) Notes Start Date End Date Status Triamcinolone Acetonide 0.1 % APPLY TO THE AFFECTED AREA(S) ON TRUNK AND EXTREMITIES TWICE DAILY External; Duration: 30 Days 06/10/2024 Active EPINEPHrine 0.3 MG/0.3ML as directed for r anahylaxis. Injection call EMS after injection. must go to ER. 07/24/2023 Active Varenicline Tartrate (Starter) 0.5 MG X 11 & 1 MG X 42 as directed Orally month 2 and thereafter 06/23/2025 Active Ventolin HFA 108 (90 Base) MCG/ACT INHALE 2 PUFFS BY MOUTH EVERY 4 HOURS; Duration: 2 Active hydrOXYzine HCl 25 mg TAKE 1/2 TO 1 TABLET BY MOUTH EVERY 6 HOURS NEEDED FOR ITCHING/PANIC/ANXI ETY FOR 10 DAYS; Duration: 10 Active Clobetasol Propionate 0.05 % apply TO THE AFFECTED AREA(S) topically TO LEGS ONCE DAILY AT night. add occlusive dressing (saran WRAP) FOR 15 DAYS; Duration: 15 Active Losartan Potassium 25 mg TAKE ONE TABLET BY MOUTH ONCE DAILY; Duration: 90 Active predniSONE 20 MG TAKE THREE TABLETS BY MOUTH ONCE DAILY FOR FOUR DAYS THEN TAKE 1 & 1/2 TABLETS ONCE DAILY FOR FOUR DAYS THEN TAKE ONE TABLET ONCE DAILY FOR FOUR DAYS THEN TAKE 1/2 TABLET ONCE DAILY FOR FOUR DAYS Oral; Duration: 16 Days 06/14/2024 Unknown Escitalopram Oxalate 10 mg TAKE ONE TABLET BY MOUTH ONCE DAILY; Duration: 90 Active Albuterol Unknown Meloxicam 7.5 MG 1 tablet Orally Once a day Active Famotidine 20 mg TAKE ONE TO TWO TABLETS BY MOUTH ONCE DAILY FOR 30 DAYS; Duration: 30 Active hydroCHLOROthiazide 12.5 MG 1 capsule in the morning Oral Once a day; Duration: 90 days Active Nystatin 078788 UNIT/GM APPLY TO THE AFFECTED AREA(S) TWICE DAILY FOR 15 DAYS; Duration: 15 Active Ondansetron HCl 4 MG 1 tablet as needed for nausea/vomiting Orally three times daily 01/06/2025 Active Advair Diskus 250-50 MCG/ACT INHALE ONE PUFF TWICE DAILY FOR 30 DAYS; Duration: 30 Active Ozempic (0.25 or 0.5 MG/DOSE) 2 MG/3ML 0.5mg Subcutaneous weekly; Duration: 30 days 06/23/2025 Active Omeprazole 20 mg TAKE ONE CAPSULE BY MOUTH ONCE DAILY 30 MINUTES BEFORE MORNING MEAL; Duration: 90 Active Trelegy Ellipta 100-62.5-25 MCG/ACT 1 puff Inhalation Once a day 08/29/2024 Unknown Pimecrolimus 1 % APPLY ONE APPLICATION EXTERNALLY TWICE DAILY FOR 7 DAYS; Duration: 7 Active Nystatin 199139 UNIT/GM apply powder TO diaper/skin RASH TWICE DAILY FOR 10 DAYS; Duration: 10 Active Social History Tobacco Use: Social History Observation Description Date Details (start date - stop date) Current Smoker NA - NA Sex Assigned At : Social History Observation Description Sex Assigned At Female Tobacco Use/Smoking Question Answer Notes Tobacco use: current smoker Section Notes: actively working on quitting smoking 4/21/23 actively working on quitting smoking 03/13/23 Problems Problem Type SNOMED Code ICD Code Onset Dates Problem Status W/U Status Risk Notes Problem Seasonal allergy (627452328) Seasonal allergies (J30.2) Active confirmed Problem Eosinophil count above reference range (finding) (940224495) 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) Active confirmed Problem Primary hypertension (52246518) Primary hypertension (I10) Active confirmed Problem Gastroesophageal reflux disease (745857774) Gastroesophageal reflux disease, unspecified whether esophagitis present (K21.9) Active confirmed Problem Hyperglycemia due to type 2 diabetes mellitus (066951024996780) Type 2 diabetes mellitus with hyperglycemia, without long-term current use of insulin (E11.65) Active confirmed Problem Hypersomnia (00524961) Hypersomnia (G47.10) Active confirmed Problem Acute exacerbation of chronic obstructive airways disease (722525449) COPD exacerbation (J44.1) Active confirmed Problem Smoker (82603178) Smoker (F17.200) Active confi rmed Problem Anxiety depression (058191867) Anxiety with depression (F41.8) Active confirmed Problem Body mass index 40+ - severely obese (880914319) Body mass index (BMI) of 40.1 to 44.9 in adult (Z68.41) Active confirmed Problem Hematuria syndrome (86375707) Hematuria, unspecified type (R31.9) Active confirmed Problem Food intolerance (806561149) Food intolerance (K90.49) Active confirmed Problem Food allergy (734826495) Allergy to alpha-gal (Z91.018) Active confirmed Problem Leukocytosis (135886468) Leukocytosis, unspecified type (D72.829) Active confirmed Problem Food allergy (736700449) Multiple food allergies (Z91.018) Active confirmed Problem Allergic reactio n to alpha-gal (T78.1XXA) Active confirmed Problem Body mass index 40+ - morbidly obese (067462172) BMI 40.0-44.9, adult (Z68.41) Active confirmed Problem Chronic urticaria (92416176) Chronic urticaria (L50.8) Active confirmed Problem Leukocytosis (348072021) Leukocytosis, unspecified (D72.829) Active confirmed Problem Chronic lichen planus (377267183) Chronic lichen planus (L43.9) Active confirmed Vital Signs Heart Rate 76 /min 07/31/2025 Temperature 97.6 degrees Fahrenheit 07/31/2025 Height-cm 163.83 cm 07/31/2025 Oximetry 98 % 07/31/2025 Blood pressure diastolic 82 mm Hg 07/31/2025 Weight-kg 110.31 kg 07/31/2025 Height 64.5 in 07/31/2025 Blood pressure systolic 128 mm Hg 07/31/2025 Weight 243.2 lbs 07/31/2025 BMI 41.1 kg/m2 07/31/2025 Encounters Encounter Location Date Provider Diagnosis [facility] [address] [place] [phone] 06/01/2025 Zoe Fernandez Lung nodule R91.[address] [address] 08/15/2024 Zoe Fernandez Bronchitis with wheezing J40 and Right acute suppurative otitis media H66.[address] [address] 08/29/2024 Zoe Fernandez COPD exacerbation J4 4.[address] [address] 11/03/2024 Zoealyce Fernandez COPD exacerbation J4 4.1 ; Wheezing R06.2 ; Intertrigo L30.4 and COVID U07.1 [facility] [address] [place] [phone] 01/06/2025 Zoe Fernandez GE (gastroenteritis) K52.9 [facility] [address] [place] [phone] 03/21/2025 Zoe Fernandez Chronic urticaria L5 0.8 ; Multiple food allergies Z91.018 ; Allergy to alpha-gal Z91.018 ; Chronic lichen planus L43.9 and BMI 40.0-44.9, adult Z68.41 [facility] [address] [place] [address] 03/23/2025 Zoe Fernandez Leukocytosis, unspecified D72.829 ; Other specified abnormal immunological findings in serum R76.8 and Other eosinophilia D72.19 [facility] [employer] [facility] [address] [place] [address] 03/30/2025 Zoe Fernandez Hypersomnia G47.10 ; Trapezius muscle spasm M62.838 and BMI 40.0-44.9, adult Z68.41 [facility] [employer] [facility] [address] [place] [phone] 04/03/2025 Zoe [place] Left leg swelling M79.89 [facility] [employer] [facility] [address] [place] [address] 04/05/2025 Zoe [place] Acute pain of left k nee M25.562 and Cutaneous abscess of trunk, unspecified site of trunk L02.[address] [address] 05/16/2025 Zoe Fernandez Elevated fasting glucose R73.01 and Excessive sweating R61 [facility] [employer] [address] [address] 2025 Zoe Type 2 diabetes mellitus with hyperglycemia, without long-term current use of insulin E11.65 ; Body mass index (BMI) of 40.1 to 44.9 in adult Z68.41 and Smoker F17.200 [facility] [employer] [address] [address] 07/31/2025 Zoe [place] LTB (laryngotracheobronchit is) J40 ; Smoker F17.200 and COPD exacerbation J44.1 [facility] [employer] [address] [address] 08/18/2024 Zoe [facility] [employer] [place] [employer] [address] [address] 09/13/[address] [address] [facility]4 4.1 [facility] [employer] [address] [address] 12/29/2024 [facility] [address] [place] [phone] 03/03/2025 [facility] [address] [place] [address] 03/09/2025 [facility] [address] [place] [phone] 03/23/[address] [address] 04/04/[address] [address] 04/13/[address] [address] 05/02/[address] [address] 05/25/[address] [address] 07/03/2025 [facility] Type 2 diabetes mellitus with hyperglycemia, without long-term current use of insulin E11.65 [facility] [employer] [place] [employer] [facility] [address] [address] 07/10/2025 [facility] Acute pain of left k nee M25.562 Assessments Encounter Date Diagnosis (ICD Code) Assessment Notes Treatment Notes Treatment Clinical Notes Section Notes 08/15/2024 Bronchitis with wheezing (ICD-10 - J40) 08/15/2024 Right acute suppurative otitis media (ICD-10 - H66.001) 08/29/2024 COPD exacerbation (ICD-10 - J44.1) she has failed advair and albuterol hx of smoking x30+ yr., with at least 2 exacerbations in past 6 mos. clean air exposure. no heavy fragrance/candles/ incense. 09/14/2024 COPD exacerbation (ICD-10 - J44.1) 11/03/2024 Wheezing (ICD-10 - R06.2) 11/03/2024 COPD exacerbation (ICD-10 - J44.1) 01/06/2025 GE (gastroenteritis) (ICD-10 - K52.9) clear liquids. advance diet slowly, simple carbs/brat diet. monitor for urine output x3 per 24hour. Call or return if worsening or not improving. Call or return if worsening or not improving. 03/21/2025 Multiple food allergies (ICD-10 - Z91.018) 03/21/2025 Chronic urticaria (ICD-10 - L50.8) 03/23/2025 Leukocytosis, unspecified (ICD-10 - D72.829) [facility] CAN NOT DO THE IMMUNE COMPETENCE LAB PER ORDERING DOCTOR OFFICE PT IS AWARE labs drawn by Suri Monaco LPN draw for [facility] fax [phone] 03/30/2025 Hypersomnia (ICD-10 - G47.10) 03/30/2025 Trapezius muscle spasm (ICD-10 - M62.838) 04/03/2025 Left leg swelling (ICD-10 - M79.89) 04/05/2025 Acute pain of left knee (ICD-10 - M25.562) X-ray left knee, 3 view at [facility] I recommended elastic compression to the left [...] to 44.9 in adult (ICD-10 - Z68.41) 06/01/2025 Lung nodule (ICD-10 - R91.1) 07/03/2025 Type 2 diabetes mellitus with hyperglycemia, without long-term current use of insulin (ICD-10 - E11.65) 07/10/2025 Acute pain of left knee (ICD-10 - M25.562) 07/31/2025 Smoker (ICD-10 - F17.200) 07/31/2025 LTB (laryngotracheobr onchitis) (ICD-10 - J40) 03/23/2025 Other specified abnormal immunological findings in serum (ICD-10 - R76.8) 07/31/2025 COPD exacerbation (ICD-10 - J44.1) 2025 Smoker (ICD-10 - F17.200) 03/30/2025 BMI 40.0-44.9, adult (ICD-10 - Z68.41) 03/21/2025 Allergy to alpha-gal (ICD-10 - Z91.018) 11/03/2024 Intertrigo (ICD-10 - L30.4) Keep skin clean and thoroughly dry. 11/03/2024 COVID (ICD-10 - U07.1) 03/21/2025 Chronic lichen planus (ICD-10 - L43.9) 03/23/2025 Other eosinophilia (ICD-10 - D72.19) 03/21/2025 BMI 40.0-44.9, adult (ICD-10 - Z68.41) 03/21/2025 Other When You Want to Lose Weight: Care Instructions material was printed, Learning About Cutting Calories material was printed, Body Mass Index: Care Instructions material was printed Keep follow-up with expeller operator 11/03/2024 Other Call or return if worsening or not improving. 08/15/2024 Other going to expeller operator in [facility] next week. no antihistamines or steroids within 5 days before Plan Of Treatment Pending Test Test Name Order Date ALPHA GAL PANEL (94526) 06/19/2023 [facility] PAP REFL HPV DNA (01673) 2022 Next Appt Details Provider Name:Zoe Fernandez , 08/15/2025 09:45:00 AM, [address], [address], Provider Name:Zoe Fernandez , 08/24/2025 08:10:00 AM, [address] , [address], [address], Provider Name:Zoe Fernandez , 08/31/2025 09:20:00 AM, [address] , [facility], [place], [address], Insurance Providers Payer Name Payer Address Payer Phone Subscriber Number Group Number Insured Name Patient Relationship to Insured Coverage Start Date Coverage End Date [facility] [address] [place] [phone] [id number] Dominique Naylor Self - patient is the insured 3 Medical (General) History Medical History History ICD Code Hx of high blood pressure smoker since age 18. smokes 1/2 ppd. PAP: normal 02/2023 MAMMO: due june
--- NOTE | 2025-08-15 00:44 | W.ED.SOB ---
HPI - SOB/Dyspnea General: Chief Complaint: Shortness of Breath/Dyspnea Stated Complaint: Coughing up blood, COPD, o2 dropping Time Seen by Provider: 08/15/25 00:31 Source: patient Mode of arrival: ambulatory Limitations: no limitations History of Present Illness: HPI Narrative: 50-year-old female who states that over the last 3 weeks has been having shortness of breath does have a history of COPD. She states that she has been on 2 rounds of Z-Pa along with steroids and states that over the last 2 days she started having worsening cough and dyspnea states she has had some slight blood tinged mucus. She denies any chest pain denies any fever. Associated symptoms: Deny chest pain or fever(s) Related Data Home Medications ?Medication ?Instructions ?Recorded ?Confirmed [id number] 18 mg-FA 400 tab PO 06/26/22 08/14/25 mcg-calcium 500 mg-vit K 50 mcg tablet (Women's Multivitamin) losartan 25 mg tablet 25 mg PO DAILY 04/28/25 08/14/25 escitalopram oxalate 20 mg tablet 20 mg PO DAILY 05/09/25 08/14/25 (Lexapro) hydrochlorothiazide 25 mg tablet 25 mg PO DAILY 05/09/25 08/14/25 omeprazole magnesium 20 mg 20 mg PO DAILY 05/09/25 08/14/25 tablet,delayed release (Prilosec OTC) Previous Rx's ?Medication ?Instructions ?Recorded losartan 25 mg tablet See Rx Instructions .Route 10/23/22 .COMPLEX #90 tabs meloxicam 7.5 mg tablet 7.5 mg PO DAILY #90 tabs 04/28/25 Allergies Allergy/AdvReac Type Severity Reaction Status Date / Time Sulfa (Sulfonamide Allergy ALGY-Hives Verified 08/14/25 09:40 Antibiotics) Review of Systems Const: Denies: fever(s) or chills ENMT: Denies: throat pain Card: Denies: chest pain Resp: Reports: dyspnea and productive cough [facility] PFSH: Medical History Greater trochanteric bursitis of both hips Low back pain radiating to both legs Primary osteoarthritis of left knee Social History Smoking and tobacco/nicotine status: former use of tobacco/nicotine Alcohol intake: never Substance/Drug Use: never Physical Exam Const: COMMON NORMALS: no acute distress, patient oriented x3 and healthy appearing HENMT: COMMON NORMALS: normocephalic and atraumatic HEAD & SCALP: normocephalic and atraumatic Eye: COMMON NORMALS: conjunctivae normal CONJUNCTIVA: Yes conjunctivae normal Neck/C-Spine: COMMON NORMALS: full ROM and supple Chest: COMMONS NORMALS: normal inspection of the chest Resp: COMMON NORMALS: No retractions and No use of accessory muscles EFFORT & INSPECTION: Yes audible wheezes Cardio: COMMON NORMALS: regular rate, regular rhythm and No murmurs present (Cardio) RATE: regular rate RHYTHM: regular rhythm Extremity: COMMON NORMALS: normal to inspection and full ROM Neuro: COMMON NORMALS: patient oriented x3, moves all extremities and no focal motor deficits Psych: COMMON NORMALS: mental status grossly normal, Normal thought process present and cooperative THOUGHT PROCESS: Normal thought process present Skin: COMMON NORMALS: no rashes or lesions noted and no wounds GENERAL SKIN EXAM: no rashes or lesions noted Course Vital Signs: Vital signs: Vital Signs Temperature 98.4 F 08/15/25 00:35 Pulse Rate 88 08/15/25 01:27 Respiratory Rate 24 H 08/15/25 01:19 Blood Pressure 136/84 08/15/25 00:57 Pulse Oximetry 92 08/15/25 01:19 Oxygen Delivery Me thod Room Air 08/15/25 01:19 MDM - SOB/Dyspnea Medical Decision Making Patient presents for shortness of breath is likely COPD exacerbation she had some slight hemoptysis as well CTA shows no signs of pulmonary embolism or pneumonia. She feels improved after breathing treatments her oxygen has improved as well did go over her blood work with her she has a normal white count went over her CT findings. She is stable for discharge follow-up with PCP return if worsening. Medical Records I reviewed the patient's medical records. Lab Data I reviewed the patient's lab results. 08/15/25 00:47 08/15/25 00:47 Labs/Radiology: Radiology Impressions Chest X-Ray 08/15/25 00:31 IMPRESSION: No acute findings. Chest CTA 08/15/25 01:16 IMPRESSION: 1. No acute pulmonary embolus or evidence of acute right heart strain. 2. No acute pulmonary process. 3. Isolated pulmonary nodule as above. For both low risk and high risk patients, consider CT Chest at 3 months, PET/CT, or biopsy. (Reference: Alec) 4. Asymmetric subareolar left breast soft tissue with calcification. Correlate with mammographic history. REFERENCES: Alec Gupta, et al. Guidelines for Management of Incidental Pulmonary Nodules Detected on CT Images: From the Fleischner Society 2017. Radiology. 2017;284(1):228-243. Laboratory Results WBC 18.47 10^3/uL (3.29-11.43) H 08/15/25 00:47 RBC 4.63 10^6/uL (3.85-5.65) 08/15/25 00:47 Hgb 14.10 g/dL (11.27-16.99) 08/15/25 00:47 Hct 42.2 % (36-47) 08/15/25 00:47 MCV 91.1 fl (85-98) 08/15/25 00:47 MCH 30.5 pg (27-33) 08/15/25 00:47 MCHC 33.4 g/dL (30-55) 08/15/25 00:47 RDW 13.5 % (12.1-15.1) 08/15/25 00:47 Plt Count 322 10^3/cmm (157-399) 08/15/25 00:47 MPV 9.7 fL (7.4-10.4) 08/15/25 00:47 Neut % (Auto) 70.7 % 08/15/25 00:47 Lymph % (Auto) 18.6 % 08/15/25 00:47 [place] % (Auto) 4.8 % 08/15/25 00:47 Eos % (Auto) 4.9 % 08/15/25 00:47 Baso % (Auto) 0.4 % 08/15/25 00:47 Neut # (Auto) 13.08 10^3/uL (1.8-7.7) H 08/15/25 00:47 Lymph # (Auto) 3.4 10^3/uL (0.8-4.8) 08/15/25 00:47 [place] # (Auto) 0.9 10^3/uL (0.2-0.9) 08/15/25 00:47 Eos # (Auto) 0.9 10^3/uL (0.0-0.8) H 08/15/25 00:47 Baso # (Auto) 0.1 10^3/uL (0.0-0.1) 08/15/25 00:47 Nucleated RBC % (auto) 0 % 08/15/25 00:47 Nucleated RBCs # 0.0 /100WBC 08/15/25 00:47 PT 12.20 SECONDS (12.1-14.9) 08/15/25 00:47 INR 0.85 (0.8-1.2) 08/15/25 00:47 D-Dimer 0.85 ug/mLFEU (0-0.59) H 08/15/25 00:47 Sodium 138 mmol/L (136-145) 08/15/25 00:47 Potassium 3.5 mmol/L (3.5-5.1) 08/15/25 00:47 Chloride 100 mmol/L (98-107) 08/15/25 00:47 Carbon Dioxide 27 mmol/L (22-29) 08/15/25 00:47 Anion Gap 14.5 (5-19) 08/15/25 00:47 BUN 9 mg/dL (6-20) 08/15/25 00:47 Creatinine 0.6 mg/dL (0.5-0.9) 08/15/25 00:47 GFR Calculation 106.3 mL/min (90-130) 08/15/25 00:47 Glucose 106 mg/dL (65-115) 08/15/25 00:47 Calculated Osmolality 285 mOsm/kg (285-295) 08/15/25 00:47 Calcium 9.2 mg/dL (8.5-10.5) 08/15/25 00:47 Total Bilirubin 0.2 mg/dL (0.15-1.2) 08/15/25 00:47 AST 18 U/L (0-32) 08/15/25 00:47 ALT 27 U/L (0-33) 08/15/25 00:47 Alkaline Phosphatase 93 U/L (35-105) 08/15/25 00:47 NT-Pro-B Natriuret Pep 54 pg/mL (0-125) 08/15/25 00:47 Total Protein 7.6 g/dL (6.6-8.7) 08/15/25 00:47 Albumin 3.6 g/dL (3.5-5.2) 08/15/25 00:47 Globulin 4.0 g/dL (1.3-4.6) 08/15/25 00:47 All radiology interpretation(s) finalized by discharge EKG Data EKG 1: I personally reviewed and interpreted this EKG as follows: EKG Interpretation Date: 08/15/25 EKG interpretation time: 20:35 Interpretation: nsr hr [address] elevation qrs 94 qtc 385 Discharge Plan Discharge Patient Disposition: Home Clinical Impression: Acute exacerbation of chronic obstructive airways disease Condition: Stable Prescriptions: No Action losartan 25 mg tablet 25 mg PO DAILY meloxicam 7.5 mg tablet 7.5 mg PO DAILY Qty: 90 0RF hydrochlorothiazide 25 mg tablet 25 mg PO DAILY escitalopram oxalate [Lexapro] 20 mg tablet 20 mg PO DAILY omeprazole magnesium [Prilosec OTC] 20 mg tablet,delayed release (DR/EC) 20 mg PO DAILY Women's Multivitamin 18 mg-400 mcg- 500 mg-50 mcg tablet PO losartan 25 mg tablet See Rx Instructions .ROUTE .COMPLEX Qty: 90 0RF Dose Instruction: Take 1 tablet by mouth once daily Rx Instructions: Take 1 tablet by mouth once daily Discharge Orders: Discharge ED (Routine); Ordered 08/15/25 Ordered By: Sanjeev Hoskins Referrals: Zoe Fernandez, NURSING HOME PHYSICIAN [Primary Care Provider, [facility]] - 4-7 days Discharge Diet: Advance as tolerated Discharge Activity: Resume usual activity Patient Instructions: COPD (Chronic Obstructive Pulmonary Disease) (ED) Print Language: Luxembourgish Coding Level of Care Code ED Technical Solution Architect for Rehana Greene
[2025-08-15] MEDS: methylPREDNISolone sod succ 125 mg/2 mL INJ IVP (00:54)
[2025-08-15 00:57] VITALS: BP 136/84; PULSE 90; O2SAT 91
[2025-08-15 01:05] LABS: Hematocrit 42.2 % (36-47); Hemoglobin 14.10 g/dL (11.27-16.99); Mean Corpuscular HGB Conc 33.4 g/dL (30-55); Mean Corpuscular Hemoglobin 30.5 pg (27-33); Mean Corpuscular Volume 91.1 fl (85-98); Nucleated Red Blood Cells % 0 %; Platelet Count 322 10^3/cmm (157-399); Red Blood Count 4.63 10^6/uL (3.85-5.65); White Blood Count 18.47 10^3/uL (3.29-11.43)
[2025-08-15 01:09] LABS: INR 0.85 (0.8-1.2); Prothrombin Time 12.20 SECONDS (12.1-14.9)
--- NOTE | 2025-08-15 01:16 | CTR_ITS ---
PROCEDURE INFORMATION: Exam: CTA Chest With Contrast Exam date and time: 08/15/2025 1:54 AM Age: 50 years old Clinical indication: Shortness of breath; Additional info: SOB TECHNIQUE: Imaging protocol: Computed tomographic angiography of the chest with contrast. Exam focused on the arteries. 3D rendering (Not supervised by radiologist): MIP and/or 3D reconstructed images were created by the technologist. Radiation optimization: All CT scans at this facility use at least one of these dose optimization techniques: automated exposure control; mA and/or kV adjustment per patient size (includes targeted exams where dose is matched to clinical indication); or iterative reconstruction. Contrast material: OMNI 350; Contrast volume: 100 ml; Contrast route: INTRAVENOUS (IV); COMPARISON: CT angio chest PE protcl [id number] 05/28/2025 5:03 PM RADIATION DOSE METRICS: Total DLP (mGy-cm): 574.24 FINDINGS: Pulmonary arteries: No acute pulmonary embolus is identified. Aorta: Unremarkable. No aortic aneurysm. No aortic dissection. Lungs: Stable 8 mm (series 7, image 157) noncalcified left upper lobe pulmonary nodule. Pleural spaces: Unremarkable. No pneumothorax. No pleural effusion. Heart: Unremarkable. No cardiomegaly. No pericardial effusion. Lymph nodes: Unremarkable. No enlarged lymph nodes. Bones/joints: Unremarkable. No acute fracture. Soft tissues: Asymmetric subareolar left breast tissue with punctate calcifications. CT/CT angio chest PE protcl [id number] IMPRESSION: 1. No acute pulmonary embolus or evidence of acute right heart strain. 2. No acute pulmonary process. 3. Isolated pulmonary nodule as above. For both low risk and high risk patients, consider CT Chest at 3 months, PET/CT, or biopsy. (Reference: Alec) 4. Asymmetric subareolar left breast soft tissue with calcification. Correlate with mammographic history. REFERENCES: Alec Gupta, et al. Guidelines for Management of Incidental Pulmonary Nodules Detected on CT Images: From the Fleischner Society 2017. Radiology. 2017;284(1):228-243.
[2025-08-15 01:19] VITALS: PULSE 89; RESP 24; O2SAT 92
[2025-08-15 01:27] VITALS: PULSE 88
[2025-08-15 01:27] LABS: Alanine Aminotransferase 27 U/L (0-33); Albumin Level 3.6 g/dL (3.5-5.2); Alkaline Phosphatase 93 U/L (35-105); Anion Gap 14.5 (5-19); Aspartate Amino Transferase 18 U/L (0-32); Blood Urea Nitrogen 9 mg/dL (6-20); Calcium 9.2 mg/dL (8.5-10.5); Carbon Dioxide 27 mmol/L (22-29); Chloride 100 mmol/L (98-107); Creatinine Clr Calc Pharmacy 136.7319; Globulin 4.0 g/dL (1.3-4.6); Glucose 106 mg/dL (65-115); NT Pro B Type Natriuretic Pept 54 pg/mL (0-125); Osmolality Calculated 285 mOsm/kg (285-295); Potassium 3.5 mmol/L (3.5-5.1); Sodium 138 mmol/L (136-145); Total Protein 7.6 g/dL (6.6-8.7)
[2025-08-15] MEDS: iohexol 350 mg/mL 500 mL Btl (per mL) IV (02:08)
[2025-08-15 02:10] VITALS: BP 151/121; PULSE 95; O2SAT 94
[2025-08-15 03:12] VITALS: BP 130/101; PULSE 93; O2SAT 94
== END 2025-08-15 02:57 | disposition home or self-care (01) ==
PROVIDERS: Emergency Provider Emergency Medicine; PCP Nurse Practitioner
DX: J44.1 Chronic obstructive pulmonary disease with (acute) exacerbation (principal); Z87.891 Personal history of nicotine dependence
CPT/HCPCS: 71045; 71275; 80053; 83880; 85025; 85378; 85610; 93005; 94640; 96374; 99285; J2919; J7611; J9999

== ENCOUNTER 2025-08-17 13:49 | Outpatient (CLI) | payer MEDICAID, SELFPAY ==
--- NOTE | 2025-08-17 13:00 | MR_ITS ---
WS: [id number] MRI LUMBAR SPINE NONCONTRAST HISTORY: Back Pain COMPARISON: None available. TECHNIQUE: Sagittal and axial multisequence imaging is submitted. Mild disc osteophyte encroachment upon the ventral cervical cord from C3-4 through C5-6. Normal lumbar alignment with no compression fractures or marrow edema. Disc spaces and vertebral body heights are well-preserved. Conus terminates normally at L1-2 disc level. L1-L2: Normal. L2-L3: Mild facet and ligamentum flavum hypertrophy. No stenosis. L3-L4: Mild disc bulging with ligamentum flavum and facet arthritis. Mild encroachment upon the traversing L4 nerve roots. Mild LEFT foraminal stenosis. There is very minimal disc contact on the LEFT undersurface of the exiting nerve root. L4-L5: Moderate diffuse disc bulging with a central disc protrusion. Marked ligamentum flavum and facet arthritis. Mild subarticular recess and RIGHT foraminal stenosis. Moderate LEFT foraminal stenosis. L5-S1: Mild disc bulging. Moderate ligamentum flavum and facet arthritis. Mild bilateral foraminal stenosis, slightly greater on the LEFT.. Paravertebral soft tissues negative. S3 Tarlov cyst. MR/MR lumbar spine wo con* [id number] IMPRESSION: 1. No high-grade central or foraminal stenosis. 2. Mild disc encroachment upon the traversing L4 nerve roots at L3-4. Mild LEF T foraminal stenosis. Mild disc contact on the undersurface of the exiting LEFT L3 nerve root. 3. Central disc protrusion at L4-5. Marked facet and ligamentum flavum hypertr ophy. Moderate LEFT foraminal stenosis with mild subarticular recess and RIGHT foraminal stenosis at L4-5. 4. Mild bilateral foraminal stenosis by disc osteophyte disease at L5-S1, LEFT greater than RIGHT.
== END 2025-08-17 13:50 | disposition home or self-care (01) ==
LOC: RAD 13:49
PROVIDERS: PCP Nurse Practitioner; Visit Provider Orthopaedic Surgery
DX: M54.9 Dorsalgia, unspecified (principal)
CPT/HCPCS: 72148

== ENCOUNTER 2025-08-22 19:51 | Outpatient (CLI) | payer MEDICAID, SELFPAY | END 2025-08-22 19:52 | disposition home or self-care (01) | LOC: SLEEP 19:52 | PROVIDERS: PCP Nurse Practitioner; Referring Provider Nurse Practitioner; Visit Provider Internal Medicine Pulmonary Disease | DX: G47.10 Hypersomnia, unspecified (principal) | CPT/HCPCS: 95811 ==

== ENCOUNTER 2025-09-21 09:05 | Outpatient (RCR) | payer MEDICAID, SELFPAY | END 2025-09-22 23:59 | disposition home or self-care (01) | LOC: GPT 09:05 | PROVIDERS: PCP Nurse Practitioner; Visit Provider Orthopaedic Surgery | DX: M54.50 Low back pain, unspecified (principal); G89.29 Other chronic pain | CPT/HCPCS: 97110; 97112; 97140; 97164 ==